=== PATIENT | female | born 1955 | race Two or more races ===

== ENCOUNTER 2016-10-16 07:59 | Outpatient (CLI) | payer BC, OTHER | END 2016-10-16 23:59 | disposition home or self-care (01) | LOC: RAD 07:59 | PROVIDERS: ATTEND Family Medicine | DX: I10 Essential (primary) hypertension (principal); I70.0 Atherosclerosis of aorta; M47.814 Spondylosis without myelopathy or radiculopathy, thoracic region | CPT/HCPCS: 71020-TC ==

== ENCOUNTER 2016-11-08 07:50 | Outpatient (CLI) | payer BC, OTHER ==
[2016-11-08 08:17] LABS: EOSINOPHILS # (AUTO) 0.2 /CMM (0.0-0.7); EOSINOPHILS % (AUTO) 4.2 % (0.0-6.0); HEMATOCRIT 36 % (33-45); HEMOGLOBIN 11.9 g/dL (11.5-14.8); LYMPHOCYTES # (AUTO) 1.1 /CMM (0.8-4.8); MEAN CORPUSCULAR HEMOGLOBIN 30 PG (26.0-33.0); MEAN CORPUSCULAR HGB CONC 33 g/dl (31.0-36.0); MEAN CORPUSCULAR VOLUME 91 fL (82-100); MONOCYTES # (AUTO) 0.3 /CMM (0.1-1.30); MONOCYTES % (AUTO) 9.2 % (2.0-12.0); NEUTROPHILS # (AUTO) 2.1 /CMM (1.8-8.9); NEUTROPHILS % (AUTO) 55.6 % (43.0-81.0); PLATELET COUNT (AUTO) 326 /CMM (150-450); RDW COEFFICIENT OF VARIATION 12.9 (11.5-15.0); RED BLOOD CELL COUNT(AUTO) 3.97 MIL/uL (4.0-5.2); WHITE BLOOD COUNT (AUTO) 3.8 K/uL (4.3-11.0)
[2016-11-08 09:02] LABS: ALBUMIN 3.6 g/dL (3.4-5.0); BILIRUBIN,TOTAL 0.7 mg/dL (0.2-1.0); CALCIUM, SERUM 8.8 mg/dL (8.5-10.1); CREATININE 0.8 mg/dL (0.6-1.3); POTASSIUM 4.4 mmol/L (3.5-5.1); TOTAL PROTEIN, SERUM 7.8 g/dL (6.4-8.2)
[2016-11-08 09:07] LABS: THYROID STIMULATING HORMONE 2.037 uIU/mL (0.358-3.74)
[2016-11-09 12:21] LABS: VIT D, 25-HYDROXY 57.2 ng/mL (30.0-100.0)
[2016-11-09 15:26] LABS: HEPATITIS C VIRUS AB <0.1 s/co ratio (0.0-0.9)
== END 2016-11-08 23:59 | disposition home or self-care (01) ==
LOC: LAB 07:50
PROVIDERS: ATTEND Family Medicine
DX: Z11.59 Encounter for screening for other viral diseases (principal); I10 Essential (primary) hypertension; E55.9 Vitamin D deficiency, unspecified
CPT/HCPCS: 36415; 80053-TC; 80061-TC; 82306; 84439-TC; 84443-TC; 85025-TC; 86803

== ENCOUNTER 2017-01-03 10:02 | Outpatient (CLI) | payer BC, OTHER | END 2017-01-03 23:59 | disposition home or self-care (01) | LOC: RAD 10:02 | PROVIDERS: ATTEND Family Medicine | DX: M17.0 Bilateral primary osteoarthritis of knee (principal) | CPT/HCPCS: 73562 ==

== ENCOUNTER 2017-03-26 07:08 | Outpatient (CLI) | payer BC ==
[2017-03-26 07:27] LABS: BASOPHILS # (AUTO) 0.1 /CMM (0.0-0.2); BASOPHILS % (AUTO) 1.9 % (0.0-2.0); EOSINOPHILS # (AUTO) 0.1 /CMM (0.0-0.7); EOSINOPHILS % (AUTO) 4.3 % (0.0-6.0); HEMATOCRIT 35 % (33-45); HEMOGLOBIN 11.8 g/dL (11.5-14.8); LYMPHOCYTES % (AUTO) 32.3 % (20.0-44.0); MEAN CORPUSCULAR HEMOGLOBIN 31 PG (26.0-33.0); MEAN CORPUSCULAR HGB CONC 33 g/dl (31.0-36.0); MEAN CORPUSCULAR VOLUME 92 fL (82-100); MONOCYTES # (AUTO) 0.3 /CMM (0.1-1.30); MONOCYTES % (AUTO) 9.9 % (2.0-12.0); NEUTROPHILS # (AUTO) 1.7 /CMM (1.8-8.9); NEUTROPHILS % (AUTO) 51.6 % (43.0-81.0); PLATELET COUNT (AUTO) 314 /CMM (150-450); RDW COEFFICIENT OF VARIATION 13.6 (11.5-15.0); RED BLOOD CELL COUNT(AUTO) 3.86 MIL/uL (4.0-5.2); WHITE BLOOD COUNT (AUTO) 3.2 K/uL (4.3-11.0)
[2017-03-26 07:53] LABS: ALBUMIN 3.4 g/dL (3.4-5.0); BILIRUBIN,TOTAL 0.5 mg/dL (0.2-1.0); CALCIUM, SERUM 8.8 mg/dL (8.5-10.1); CREATININE 0.8 mg/dL (0.6-1.3); POTASSIUM 4.1 mmol/L (3.5-5.1); TOTAL PROTEIN, SERUM 7.6 g/dL (6.4-8.2)
[2017-03-26 08:01] LABS: THYROID STIMULATING HORMONE 2.378 uIU/mL (0.358-3.74)
== END 2017-03-26 23:59 | disposition home or self-care (01) ==
LOC: LAB 07:08
PROVIDERS: ATTEND Family Medicine
DX: I10 Essential (primary) hypertension (principal)
CPT/HCPCS: 36415; 80053-TC; 80061-TC; 84439-TC; 84443-TC; 85025-TC

== ENCOUNTER 2017-04-27 08:53 | Outpatient (CLI) | payer BC ==
[2017-04-30 11:09] LABS: *IFE ALBUMIN 3.5 g/dL (2.9-4.4); *IFE ALPHA-2-GLOBULIN 0.8 g/dL (0.4-1.0); *IFE BETA GLOBULIN 1.2 g/dL (0.7-1.3); *IFE GAMMA GLOBULIN 1.4 g/dL (0.4-1.8); *IFE M-SPIKE Not Observed g/dL (Not Observed); *IFEALPHA-1-GLOBULIN 0.2 g/dL (0.0-0.4); *SPE PROTEIN TOTAL 7.2 g/dL (6.0-8.5)
== END 2017-04-27 23:59 | disposition home or self-care (01) ==
LOC: LAB 08:53
PROVIDERS: ATTEND Family Medicine
DX: Z11.59 Encounter for screening for other viral diseases (principal); R73.9 Hyperglycemia, unspecified; D70.9 Neutropenia, unspecified
CPT/HCPCS: 36415; 86709-TC

== ENCOUNTER 2017-05-25 08:32 | Outpatient (CLI) | payer BC ==
[2017-05-25 09:26] LABS: BASOPHILS % (AUTO) 1.2 % (0.0-2.0); EOSINOPHILS # (AUTO) 0.2 /CMM (0.0-0.7); HEMATOCRIT 37 % (33-45); HEMOGLOBIN 12.2 g/dL (11.5-14.8); LYMPHOCYTES # (AUTO) 1.4 /CMM (0.8-4.8); LYMPHOCYTES % (AUTO) 34.1 % (20.0-44.0); MEAN CORPUSCULAR HEMOGLOBIN 31 PG (26.0-33.0); MEAN CORPUSCULAR HGB CONC 33 g/dl (31.0-36.0); MEAN CORPUSCULAR VOLUME 92 fL (82-100); MONOCYTES # (AUTO) 0.5 /CMM (0.1-1.30); MONOCYTES % (AUTO) 11.6 % (2.0-12.0); NEUTROPHILS % (AUTO) 49.1 % (43.0-81.0); PLATELET COUNT (AUTO) 328 /CMM (150-450); RDW COEFFICIENT OF VARIATION 13.6 (11.5-15.0); RED BLOOD CELL COUNT(AUTO) 3.99 MIL/uL (4.0-5.2); WHITE BLOOD COUNT (AUTO) 4.1 K/uL (4.3-11.0)
== END 2017-05-25 23:59 | disposition home or self-care (01) ==
LOC: LAB 08:32
PROVIDERS: ATTEND Family Medicine
DX: D47.2 Monoclonal gammopathy (principal)
CPT/HCPCS: 36415; 85025-TC

== ENCOUNTER 2017-05-31 09:01 | Outpatient (CLI) | payer BC | END 2017-05-31 23:59 | disposition home or self-care (01) | LOC: US 09:01 | PROVIDERS: ATTEND Family Medicine | DX: K86.89 Other specified diseases of pancreas (principal) | CPT/HCPCS: 76700-TC ==

== ENCOUNTER 2017-08-30 08:45 | Outpatient (CLI) | payer BC ==
[2017-08-30 10:12] LABS: BASOPHILS # (AUTO) 0.1 /CMM (0.0-0.2); BASOPHILS % (AUTO) 2.6 % (0.0-2.0); EOSINOPHILS # (AUTO) 0.1 /CMM (0.0-0.7); EOSINOPHILS % (AUTO) 4.2 % (0.0-6.0); HEMATOCRIT 37 % (33-45); HEMOGLOBIN 12.4 g/dL (11.5-14.8); LYMPHOCYTES # (AUTO) 0.7 /CMM (0.8-4.8); LYMPHOCYTES % (AUTO) 20.8 % (20.0-44.0); MEAN CORPUSCULAR HEMOGLOBIN 31 PG (26.0-33.0); MEAN CORPUSCULAR HGB CONC 34 g/dl (31.0-36.0); MEAN CORPUSCULAR VOLUME 92 fL (82-100); MONOCYTES # (AUTO) 0.3 /CMM (0.1-1.30); NEUTROPHILS # (AUTO) 2.3 /CMM (1.8-8.9); NEUTROPHILS % (AUTO) 64.4 % (43.0-81.0); PLATELET COUNT (AUTO) 307 /CMM (150-450); RDW COEFFICIENT OF VARIATION 13.6 (11.5-15.0); WHITE BLOOD COUNT (AUTO) 3.5 K/uL (4.3-11.0)
[2017-08-30 10:30] LABS: ALBUMIN 3.4 g/dL (3.4-5.0); BILIRUBIN,TOTAL 0.7 mg/dL (0.2-1.0); CALCIUM, SERUM 9.2 mg/dL (8.5-10.1); CREATININE 0.7 mg/dL (0.6-1.3); TOTAL PROTEIN, SERUM 8.1 g/dL (6.4-8.2)
[2017-09-02 21:13] LABS: BETA-2 MICROGLOBULIN, SERUM 1.8 mg/L (0.6-2.4)
== END 2017-08-30 23:59 | disposition home or self-care (01) ==
LOC: LAB 08:45
PROVIDERS: ATTEND Internal Medicine Hematology & Oncology
DX: D47.2 Monoclonal gammopathy (principal)
CPT/HCPCS: 36415; 80053-TC; 82232; 85025-TC

== ENCOUNTER 2017-11-23 09:11 | Outpatient (CLI) | payer BC ==
[2017-11-23 10:22] LABS: BASOPHILS % (AUTO) 0.7 % (0.0-2.0); EOSINOPHILS % (AUTO) 1.7 % (0.0-6.0); HEMATOCRIT 36 % (33-45); HEMOGLOBIN 12.1 g/dL (11.5-14.8); LYMPHOCYTES # (AUTO) 0.9 /CMM (0.8-4.8); LYMPHOCYTES % (AUTO) 22.6 % (20.0-44.0); MEAN CORPUSCULAR HGB CONC 34 g/dl (31.0-36.0); MEAN CORPUSCULAR VOLUME 91 fL (82-100); MONOCYTES # (AUTO) 0.4 /CMM (0.1-1.30); NEUTROPHILS # (AUTO) 2.7 /CMM (1.8-8.9); PLATELET COUNT (AUTO) 394 /CMM (150-450); RDW COEFFICIENT OF VARIATION 13.4 (11.5-15.0); RED BLOOD CELL COUNT(AUTO) 3.95 MIL/uL (4.0-5.2); WHITE BLOOD COUNT (AUTO) 4.1 K/uL (4.3-11.0)
[2017-11-23 10:39] LABS: ALBUMIN 3.2 g/dL (3.4-5.0); BILIRUBIN,TOTAL 0.5 mg/dL (0.2-1.0); CALCIUM, SERUM 9.3 mg/dL (8.5-10.1); CREATININE 0.8 mg/dL (0.6-1.3); POTASSIUM 4.4 mmol/L (3.5-5.1); TOTAL PROTEIN, SERUM 7.8 g/dL (6.4-8.2)
[2017-11-23 14:02] LABS: C-REACTIVE PROTEIN 0.5 mg/dL (0.0-0.9); THYROID STIMULATING HORMONE 1.765 uIU/mL (0.358-3.74)
[2017-11-25 20:06] LABS: BETA-2 MICROGLOBULIN, SERUM 2.1 mg/L (0.6-2.4)
[2017-11-26 12:09] LABS: *IFE A/G RATIO 0.8 (0.7-1.7); *IFE BETA GLOBULIN 1.3 g/dL (0.7-1.3); *IFE GAMMA GLOBULIN 1.4 g/dL (0.4-1.8); *IFE M-SPIKE Not Observed g/dL (Not Observed); *IFEALPHA-1-GLOBULIN 0.3 g/dL (0.0-0.4)
== END 2017-11-23 23:59 | disposition home or self-care (01) ==
LOC: LAB 09:11
PROVIDERS: ATTEND Internal Medicine Hematology & Oncology
DX: D72.819 Decreased white blood cell count, unspecified (principal); D47.2 Monoclonal gammopathy
CPT/HCPCS: 36415; 80053-TC; 82232; 82746; 84156; 84166; 84439-TC; 84443-TC; 85025-TC; 86140-TC; 86335; 86431-TC; 86706; 86803; 87340

== ENCOUNTER 2017-12-21 07:12 | Outpatient (CLI) | payer BC ==
[2017-12-21 09:44] LABS: EOSINOPHILS % (AUTO) 2.1 % (0.0-6.0); HEMATOCRIT 35 % (33-45); HEMOGLOBIN 11.7 g/dL (11.5-14.8); LYMPHOCYTES # (AUTO) 0.8 /CMM (0.8-4.8); LYMPHOCYTES % (AUTO) 20.7 % (20.0-44.0); MEAN CORPUSCULAR HEMOGLOBIN 31 PG (26.0-33.0); MEAN CORPUSCULAR HGB CONC 34 g/dl (31.0-36.0); MEAN CORPUSCULAR VOLUME 93 fL (82-100); MONOCYTES # (AUTO) 0.4 /CMM (0.1-1.30); MONOCYTES % (AUTO) 11.2 % (2.0-12.0); NEUTROPHILS # (AUTO) 2.5 /CMM (1.8-8.9); PLATELET COUNT (AUTO) 333 /CMM (150-450); RDW COEFFICIENT OF VARIATION 13.2 (11.5-15.0); RED BLOOD CELL COUNT(AUTO) 3.74 MIL/uL (4.0-5.2); WHITE BLOOD COUNT (AUTO) 3.8 K/uL (4.3-11.0)
[2017-12-21 09:56] LABS: ALBUMIN 3.2 g/dL (3.4-5.0); BILIRUBIN,TOTAL 0.5 mg/dL (0.2-1.0); CALCIUM, SERUM 8.6 mg/dL (8.5-10.1); CREATININE 0.8 mg/dL (0.6-1.3); POTASSIUM 4.2 mmol/L (3.5-5.1); TOTAL PROTEIN, SERUM 7.7 g/dL (6.4-8.2)
== END 2017-12-21 23:59 | disposition home or self-care (01) ==
LOC: LAB 07:12
PROVIDERS: ATTEND Internal Medicine Hematology & Oncology
DX: D47.2 Monoclonal gammopathy (principal); D72.819 Decreased white blood cell count, unspecified
CPT/HCPCS: 36415; 80053-TC; 85025-TC

== ENCOUNTER 2018-02-27 09:01 | Outpatient (CLI) | payer BC ==
[2018-02-27 09:57] LABS: BASOPHILS % (AUTO) 0.8 % (0.0-2.0); EOSINOPHILS % (AUTO) 1.2 % (0.0-6.0); HEMATOCRIT 39 % (33-45); HEMOGLOBIN 12.2 g/dL (11.5-14.8); LYMPHOCYTES # (AUTO) 0.9 /CMM (0.8-4.8); LYMPHOCYTES % (AUTO) 20.8 % (20.0-44.0); MEAN CORPUSCULAR HEMOGLOBIN 29 PG (26.0-33.0); MEAN CORPUSCULAR HGB CONC 31 g/dl (31.0-36.0); MEAN CORPUSCULAR VOLUME 94 fL (82-100); MONOCYTES # (AUTO) 0.4 /CMM (0.1-1.30); MONOCYTES % (AUTO) 9.7 % (2.0-12.0); NEUTROPHILS % (AUTO) 67.5 % (43.0-81.0); PLATELET COUNT (AUTO) 325 /CMM (150-450); RDW COEFFICIENT OF VARIATION 13.9 (11.5-15.0); RED BLOOD CELL COUNT(AUTO) 4.17 MIL/uL (4.0-5.2); WHITE BLOOD COUNT (AUTO) 4.4 K/uL (4.3-11.0)
[2018-02-27 10:34] LABS: ALBUMIN 3.3 g/dL (3.4-5.0); BILIRUBIN,TOTAL 0.6 mg/dL (0.2-1.0); CALCIUM, SERUM 8.9 mg/dL (8.5-10.1); CREATININE 0.8 mg/dL (0.6-1.3); POTASSIUM 4.2 mmol/L (3.5-5.1); TOTAL PROTEIN, SERUM 7.6 g/dL (6.4-8.2)
[2018-02-28 11:10] LABS: *IFE A/G RATIO 1.1 (0.7-1.7); *IFE ALBUMIN 3.5 g/dL (2.9-4.4); *IFE ALPHA-2-GLOBULIN 0.8 g/dL (0.4-1.0); *IFE BETA GLOBULIN 1.2 g/dL (0.7-1.3); *IFE GAMMA GLOBULIN 1.2 g/dL (0.4-1.8); *IFE M-SPIKE Not Observed g/dL (Not Observed); *IFEALPHA-1-GLOBULIN 0.2 g/dL (0.0-0.4)
== END 2018-02-27 23:59 | disposition home or self-care (01) ==
LOC: LAB 09:01
PROVIDERS: ATTEND Internal Medicine Hematology & Oncology
DX: D47.2 Monoclonal gammopathy (principal); D72.819 Decreased white blood cell count, unspecified
CPT/HCPCS: 36415; 80053-TC; 85025-TC

== ENCOUNTER 2018-09-23 08:36 | Outpatient (CLI) | payer BC ==
[2018-09-23 09:43] LABS: BASOPHILS # (AUTO) 0.1 /CMM (0.0-0.2); BASOPHILS % (AUTO) 2.8 % (0.0-2.0); HEMATOCRIT 36 % (33-45); LYMPHOCYTES # (AUTO) 0.8 /CMM (0.8-4.8); LYMPHOCYTES % (AUTO) 20.4 % (20.0-44.0); MEAN CORPUSCULAR HGB CONC 34 g/dl (31.0-36.0); MEAN CORPUSCULAR VOLUME 94 fL (82-100); MONOCYTES # (AUTO) 0.4 /CMM (0.1-1.30); MONOCYTES % (AUTO) 10.4 % (2.0-12.0); NEUTROPHILS # (AUTO) 2.3 /CMM (1.8-8.9); NEUTROPHILS % (AUTO) 62.4 % (43.0-81.0); PLATELET COUNT (AUTO) 388 /CMM (150-450); RED BLOOD CELL COUNT(AUTO) 3.81 MIL/uL (4.0-5.2); WHITE BLOOD COUNT (AUTO) 3.7 K/uL (4.3-11.0)
[2018-09-23 09:52] LABS: ALBUMIN 3.2 g/dL (3.4-5.0); BILIRUBIN,TOTAL 0.5 mg/dL (0.2-1.0); CALCIUM, SERUM 8.8 mg/dL (8.5-10.1); CREATININE 0.8 mg/dL (0.6-1.3); POTASSIUM 4.1 mmol/L (3.5-5.1); TOTAL PROTEIN, SERUM 7.5 g/dL (6.4-8.2)
[2018-09-24 15:09] LABS: *IFE A/G RATIO 1.1 (0.7-1.7); *IFE ALBUMIN 3.4 g/dL (2.9-4.4); *IFE ALPHA-2-GLOBULIN 0.7 g/dL (0.4-1.0); *IFE BETA GLOBULIN 1.2 g/dL (0.7-1.3); *IFE GAMMA GLOBULIN 1.2 g/dL (0.4-1.8); *IFE M-SPIKE Not Observed g/dL (Not Observed); *IFEALPHA-1-GLOBULIN 0.2 g/dL (0.0-0.4)
== END 2018-09-23 23:59 | disposition home or self-care (01) ==
LOC: LAB 08:36
PROVIDERS: ATTEND Internal Medicine Hematology & Oncology
DX: I10 Essential (primary) hypertension (principal); D47.2 Monoclonal gammopathy; D72.819 Decreased white blood cell count, unspecified; E53.8 Deficiency of other specified B group vitamins
CPT/HCPCS: 36415; 80053-TC; 85025-TC

== ENCOUNTER 2019-01-10 10:31 | Outpatient (CLI) | payer BC ==
[2019-01-10 11:29] LABS: BASOPHILS # (AUTO) 0.1 /CMM (0.0-0.2); BASOPHILS % (AUTO) 1.4 % (0.0-2.0); EOSINOPHILS % (AUTO) 0.8 % (0.0-6.0); HEMATOCRIT 37 % (33-45); HEMOGLOBIN 12.4 g/dL (11.5-14.8); LYMPHOCYTES # (AUTO) 0.8 /CMM (0.8-4.8); LYMPHOCYTES % (AUTO) 20.4 % (20.0-44.0); MEAN CORPUSCULAR HGB CONC 34 g/dl (31.0-36.0); MEAN CORPUSCULAR VOLUME 94 fL (82-100); MONOCYTES # (AUTO) 0.3 /CMM (0.1-1.30); MONOCYTES % (AUTO) 8.4 % (2.0-12.0); NEUTROPHILS # (AUTO) 2.7 /CMM (1.8-8.9); PLATELET COUNT (AUTO) 292 /CMM (150-450); RED BLOOD CELL COUNT(AUTO) 3.95 MIL/uL (4.0-5.2); WHITE BLOOD COUNT (AUTO) 3.9 K/uL (4.3-11.0)
[2019-01-10 11:59] LABS: ALBUMIN 3.4 g/dL (3.4-5.0); BILIRUBIN,TOTAL 0.4 mg/dL (0.2-1.0); CALCIUM, SERUM 8.9 mg/dL (8.5-10.1); CREATININE 0.8 mg/dL (0.6-1.3); POTASSIUM 3.9 mmol/L (3.5-5.1); TOTAL PROTEIN, SERUM 7.5 g/dL (6.4-8.2)
[2019-01-10 12:08] LABS: THYROID STIMULATING HORMONE 1.831 uIU/mL (0.358-3.74)
[2019-01-14 06:07] LABS: *IFE ALBUMIN 3.6 g/dL (2.9-4.4); *IFE ALPHA-2-GLOBULIN 0.8 g/dL (0.4-1.0); *IFE BETA GLOBULIN 1.3 g/dL (0.7-1.3); *IFE GAMMA GLOBULIN 1.3 g/dL (0.4-1.8); *IFE M-SPIKE Not Observed g/dL (Not Observed); *IFEALPHA-1-GLOBULIN 0.2 g/dL (0.0-0.4); IMMUNOGLOBULIN A, SERUM 695 mg/dL (87-352); IMMUNOGLOBULIN G, SERUM 1284 mg/dL (700-1600); IMMUNOGLOBULIN M, SERUM 89 mg/dL (26-217)
== END 2019-01-10 23:59 | disposition home or self-care (01) ==
LOC: LAB 10:31
PROVIDERS: ATTEND Internal Medicine Hematology & Oncology
DX: D72.819 Decreased white blood cell count, unspecified (principal); E53.8 Deficiency of other specified B group vitamins; M19.90 Unspecified osteoarthritis, unspecified site
CPT/HCPCS: 36415; 80053-TC; 82784; 84155; 84165; 84439-TC; 84443-TC; 85025-TC; 86334

== ENCOUNTER → 2019-05-21 | Outpatient (CLI) | payer BC ==
[2019-05-21 10:33] LABS: EOSINOPHILS % (AUTO) 2.2 % (0.0-6.0); HEMATOCRIT 39 % (33-45); HEMOGLOBIN 12.9 g/dL (11.5-14.8); LYMPHOCYTES # (AUTO) 0.9 /CMM (0.8-4.8); MEAN CORPUSCULAR HGB CONC 33 g/dl (31.0-36.0); MEAN CORPUSCULAR VOLUME 95 fL (82-100); MONOCYTES # (AUTO) 0.3 /CMM (0.1-1.30); MONOCYTES % (AUTO) 7.6 % (2.0-12.0); NEUTROPHILS # (AUTO) 2.9 /CMM (1.8-8.9); NEUTROPHILS % (AUTO) 68.2 % (43.0-81.0); PLATELET COUNT (AUTO) 266 /CMM (150-450); RED BLOOD CELL COUNT(AUTO) 4.06 MIL/uL (4.0-5.2); WHITE BLOOD COUNT (AUTO) 4.3 K/uL (4.3-11.0)
[2019-05-21 11:02] LABS: THYROID STIMULATING HORMONE 1.771 uIU/mL (0.358-3.74)
[2019-05-23 12:07] LABS: *IFE A/G RATIO 0.9 (0.7-1.7); *IFE ALBUMIN 3.2 g/dL (2.9-4.4); *IFE ALPHA-2-GLOBULIN 0.8 g/dL (0.4-1.0); *IFE BETA GLOBULIN 1.3 g/dL (0.7-1.3); *IFE GAMMA GLOBULIN 1.4 g/dL (0.4-1.8); *IFE M-SPIKE Not Observed g/dL (Not Observed); *IFEALPHA-1-GLOBULIN 0.2 g/dL (0.0-0.4)
== END | disposition home or self-care (01) ==
LOC: LAB 09:46
PROVIDERS: ATTEND Internal Medicine Hematology & Oncology
DX: D47.2 Monoclonal gammopathy (principal)
CPT/HCPCS: 36415; 84439-TC; 84443-TC; 85025-TC

== ENCOUNTER 2019-09-23 10:55 | Outpatient (CLI) | payer BC ==
[2019-09-23 11:55] LABS: BASOPHILS % (AUTO) 0.9 % (0.0-2.0); EOSINOPHILS % (AUTO) 2.5 % (0.0-6.0); HEMATOCRIT 38 % (33-45); HEMOGLOBIN 12.5 g/dL (11.5-14.8); LYMPHOCYTES % (AUTO) 22.8 % (20.0-44.0); MEAN CORPUSCULAR HGB CONC 33 g/dl (31.0-36.0); MEAN CORPUSCULAR VOLUME 95 fL (82-100); MONOCYTES # (AUTO) 0.4 /CMM (0.1-1.30); MONOCYTES % (AUTO) 9.1 % (2.0-12.0); NEUTROPHILS # (AUTO) 2.8 /CMM (1.8-8.9); NEUTROPHILS % (AUTO) 64.7 % (43.0-81.0); PLATELET COUNT (AUTO) 292 /CMM (150-450); RED BLOOD CELL COUNT(AUTO) 3.97 MIL/uL (4.0-5.2); WHITE BLOOD COUNT (AUTO) 4.3 K/uL (4.3-11.0)
[2019-09-23 12:12] LABS: ALBUMIN 3.3 g/dL (3.4-5.0); BILIRUBIN,TOTAL 0.4 mg/dL (0.2-1.0); CALCIUM, SERUM 8.8 mg/dL (8.5-10.1); CREATININE 0.9 mg/dL (0.6-1.3); TOTAL PROTEIN, SERUM 7.7 g/dL (6.4-8.2)
[2019-09-23 12:20] LABS: THYROID STIMULATING HORMONE 2.101 uIU/mL (0.358-3.74)
[2019-09-23 12:38] LABS: POTASSIUM 3.8 mmol/L (3.5-5.1)
[2019-09-24 11:06] LABS: *SPE A/G RATIO 0.9 (0.7-1.7); *SPE ALBUMIN 3.3 g/dL (2.9-4.4); *SPE ALPHA-1-GLOBULIN 0.2 g/dL (0.0-0.4); *SPE ALPHA-2-GLOBULIN 0.8 g/dL (0.4-1.0); *SPE BETA GLOBULIN 1.5 g/dL (0.7-1.3); *SPE GLOBULIN, TOTAL 3.7 g/dL (2.2-3.9); *SPE M-SPIKE Not Observed g/dL (Not Observed); *SPEGAMMA GLOBULIN 1.2 g/dL (0.4-1.8)
== END 2019-09-23 23:59 | disposition home or self-care (01) ==
LOC: LAB 10:55
PROVIDERS: ATTEND Internal Medicine Hematology & Oncology
DX: D47.2 Monoclonal gammopathy (principal); D72.819 Decreased white blood cell count, unspecified; E53.8 Deficiency of other specified B group vitamins
CPT/HCPCS: 36415; 80053-TC; 82728-TC; 83540-TC; 84155; 84165; 84439-TC; 84443-TC; 85025-TC

== ENCOUNTER 2019-10-07 09:49 | Outpatient (CLI) | payer BC | END 2019-10-07 23:59 | disposition home or self-care (01) | LOC: MRI 09:49 | PROVIDERS: ATTEND Family Medicine | DX: S83.242A Other tear of medial meniscus, current injury, left knee, initial encounter (principal); M17.0 Bilateral primary osteoarthritis of knee; M25.462 Effusion, left knee; M25.461 Effusion, right knee; M25.762 Osteophyte, left knee; M25.761 Osteophyte, right knee; M67.462 Ganglion, left knee; M65.88 Other synovitis and tenosynovitis, other site; X58.XXXA Exposure to other specified factors, initial encounter; Y93.89 Activity, other specified; Y92.89 Other specified places as the place of occurrence of the external cause; Y99.8 Other external cause status | CPT/HCPCS: 73721-TC ==

== ENCOUNTER 2020-01-19 14:49 | Outpatient (CLI) | payer BC ==
[2020-01-19 16:08] LABS: EOSINOPHILS % (AUTO) 2.9 % (0.0-6.0); HEMATOCRIT 40 % (33-45); HEMOGLOBIN 13.3 g/dL (11.5-14.8); LYMPHOCYTES # (AUTO) 0.9 /CMM (0.8-4.8); LYMPHOCYTES % (AUTO) 24.9 % (20.0-44.0); MEAN CORPUSCULAR HGB CONC 33 g/dl (31.0-36.0); MEAN CORPUSCULAR VOLUME 95 fL (82-100); MONOCYTES # (AUTO) 0.3 /CMM (0.1-1.30); MONOCYTES % (AUTO) 8.9 % (2.0-12.0); NEUTROPHILS # (AUTO) 2.3 /CMM (1.8-8.9); NEUTROPHILS % (AUTO) 62.3 % (43.0-81.0); PLATELET COUNT (AUTO) 234 /CMM (150-450); RED BLOOD CELL COUNT(AUTO) 4.25 MIL/uL (4.0-5.2); WHITE BLOOD COUNT (AUTO) 3.7 K/uL (4.3-11.0)
[2020-01-19 16:40] LABS: ALBUMIN 3.9 g/dL (3.4-5.0); BILIRUBIN,TOTAL 0.3 mg/dL (0.2-1.0); CALCIUM, SERUM 9.7 mg/dL (8.5-10.1); CREATININE 0.8 mg/dL (0.6-1.3); POTASSIUM 4.4 mmol/L (3.5-5.1); TOTAL PROTEIN, SERUM 8.8 g/dL (6.4-8.2)
[2020-01-19 16:55] LABS: FREE T4 (FREE THYROXINE) 0.97 ng/dL (0.76-1.46); THYROID STIMULATING HORMONE 2.082 uIU/mL (0.358-3.74)
[2020-01-20 08:16] LABS: IMMUNOGLOBULIN A, SERUM 689 mg/dL (87-352); IMMUNOGLOBULIN G, SERUM 1336 mg/dL (586-1602); IMMUNOGLOBULIN M, SERUM 83 mg/dL (26-217)
[2020-01-21 06:07] LABS: *SPE A/G RATIO 0.8 (0.7-1.7); *SPE ALBUMIN 3.3 g/dL (2.9-4.4); *SPE ALPHA-1-GLOBULIN 0.2 g/dL (0.0-0.4); *SPE ALPHA-2-GLOBULIN 0.8 g/dL (0.4-1.0); *SPE BETA GLOBULIN 1.4 g/dL (0.7-1.3); *SPE GLOBULIN, TOTAL 3.9 g/dL (2.2-3.9); *SPE M-SPIKE Not Observed g/dL (Not Observed); *SPEGAMMA GLOBULIN 1.4 g/dL (0.4-1.8)
== END 2020-01-19 23:59 | disposition home or self-care (01) ==
LOC: LAB 14:49
PROVIDERS: ATTEND Internal Medicine Hematology & Oncology
DX: D64.9 Anemia, unspecified (principal)
CPT/HCPCS: 36415; 80053-TC; 82728-TC; 82784; 83540-TC; 84155; 84165; 84439-TC; 84443-TC; 85025-TC; 86334

== ENCOUNTER 2020-02-24 09:42 | Outpatient (CLI) | payer BC ==
[2020-02-24 10:45] LABS: BASOPHILS % (AUTO) 1.1 % (0.0-2.0); EOSINOPHILS % (AUTO) 3.6 % (0.0-6.0); HEMATOCRIT 38 % (33-45); HEMOGLOBIN 12.5 g/dL (11.5-14.8); LYMPHOCYTES # (AUTO) 0.9 /CMM (0.8-4.8); LYMPHOCYTES % (AUTO) 22.2 % (20.0-44.0); MEAN CORPUSCULAR HGB CONC 33 g/dl (31.0-36.0); MEAN CORPUSCULAR VOLUME 95 fL (82-100); MONOCYTES # (AUTO) 0.3 /CMM (0.1-1.30); NEUTROPHILS # (AUTO) 2.7 /CMM (1.8-8.9); NEUTROPHILS % (AUTO) 65.1 % (43.0-81.0); PLATELET COUNT (AUTO) 277 /CMM (150-450); RED BLOOD CELL COUNT(AUTO) 4.03 MIL/uL (4.0-5.2); WHITE BLOOD COUNT (AUTO) 4.2 K/uL (4.3-11.0)
[2020-02-24 10:56] LABS: ALBUMIN 3.2 g/dL (3.4-5.0); BILIRUBIN,TOTAL 0.5 mg/dL (0.2-1.0); CALCIUM, SERUM 8.6 mg/dL (8.5-10.1); CREATININE 0.9 mg/dL (0.6-1.3); POTASSIUM 4.1 mmol/L (3.5-5.1); TOTAL PROTEIN, SERUM 7.4 g/dL (6.4-8.2)
[2020-02-24 11:05] LABS: THYROID STIMULATING HORMONE 1.987 uIU/mL (0.358-3.74)
[2020-02-25 06:07] LABS: T3, FREE 2.8 pg/mL (2.0-4.4)
== END 2020-02-24 23:59 | disposition home or self-care (01) ==
LOC: LAB 09:42
PROVIDERS: ATTEND Family Medicine
DX: S83.512A Sprain of anterior cruciate ligament of left knee, initial encounter (principal); D70.9 Neutropenia, unspecified; I65.23 Occlusion and stenosis of bilateral carotid arteries; R89.4 Abnormal immunological findings in specimens from other organs, systems and tissues; X58.XXXA Exposure to other specified factors, initial encounter; Y93.89 Activity, other specified; Y92.89 Other specified places as the place of occurrence of the external cause; Y99.8 Other external cause status
CPT/HCPCS: 36415; 80053-TC; 82306; 84439-TC; 84443-TC; 84481; 85025-TC

== ENCOUNTER 2020-03-16 10:49 | Outpatient (CLI) | payer BC ==
[2020-03-16 13:05] LABS: CHOLESTEROL 178 mg/dL (<200); HDL CHOLESTEROL 55 mg/dL (40-60); LDL 107 mg/dL (0-99); TRIGLYCERIDES 159 mg/dL (30-150)
== END 2020-03-16 23:59 | disposition home or self-care (01) ==
LOC: LAB 10:49
PROVIDERS: ATTEND Family Medicine
DX: E78.2 Mixed hyperlipidemia (principal)
CPT/HCPCS: 36415; 80061-TC

== ENCOUNTER 2020-05-11 08:37 | Outpatient (CLI) | payer BC ==
[2020-05-11 09:24] LABS: ALBUMIN 3.4 g/dL (3.4-5.0); BILIRUBIN,TOTAL 0.6 mg/dL (0.2-1.0); CALCIUM, SERUM 8.9 mg/dL (8.5-10.1); CREATININE 0.9 mg/dL (0.6-1.3); POTASSIUM 4.3 mmol/L (3.5-5.1); TOTAL PROTEIN, SERUM 7.7 g/dL (6.4-8.2)
== END 2020-05-11 23:59 | disposition home or self-care (01) ==
LOC: LAB 08:37
PROVIDERS: ATTEND Family Medicine
DX: I10 Essential (primary) hypertension (principal)
CPT/HCPCS: 36415; 80053-TC

== ENCOUNTER 2020-05-18 14:54 | Outpatient (CLI) | payer BC ==
[2020-05-18 15:36] LABS: BASOPHILS # (AUTO) 0.1 /CMM (0.0-0.2); BASOPHILS % (AUTO) 1.3 % (0.0-2.0); EOSINOPHILS % (AUTO) 3.1 % (0.0-6.0); HEMATOCRIT 35 % (33-45); HEMOGLOBIN 11.6 g/dL (11.5-14.8); LYMPHOCYTES % (AUTO) 25.1 % (20.0-44.0); MEAN CORPUSCULAR HGB CONC 33 g/dl (31.0-36.0); MEAN CORPUSCULAR VOLUME 95 fL (82-100); MONOCYTES # (AUTO) 0.4 /CMM (0.1-1.30); MONOCYTES % (AUTO) 9.5 % (2.0-12.0); NEUTROPHILS # (AUTO) 2.4 /CMM (1.8-8.9); PLATELET COUNT (AUTO) 278 /CMM (150-450); RED BLOOD CELL COUNT(AUTO) 3.68 MIL/uL (4.0-5.2); WHITE BLOOD COUNT (AUTO) 3.9 K/uL (4.3-11.0)
[2020-05-18 15:58] LABS: ALBUMIN 3.2 g/dL (3.4-5.0); BILIRUBIN,TOTAL 0.3 mg/dL (0.2-1.0); CALCIUM, SERUM 8.6 mg/dL (8.5-10.1); CREATININE 0.9 mg/dL (0.6-1.3); POTASSIUM 4.2 mmol/L (3.5-5.1); TOTAL PROTEIN, SERUM 7.4 g/dL (6.4-8.2)
[2020-05-18 16:18] LABS: THYROID STIMULATING HORMONE 1.647 uIU/mL (0.358-3.74)
== END 2020-05-18 23:59 | disposition home or self-care (01) ==
LOC: LAB 14:54
PROVIDERS: ATTEND Internal Medicine Hematology & Oncology
DX: D47.2 Monoclonal gammopathy (principal); E53.8 Deficiency of other specified B group vitamins
CPT/HCPCS: 80053-TC; 82728-TC; 83540-TC; 84439-TC; 84443-TC; 85025-TC

== ENCOUNTER 2020-05-31 11:25 | Outpatient (CLI) | payer BC ==
[2020-05-31 14:36] LABS: BILIRUBIN,URINE NEGATIVE (NEGATIVE); BLOOD, URINE TRACE Ery/uL (NEGATIVE); COLOR,URINE YELLOW (YELLOW); LEUKOCYTE ESTERASE ,URINE TRACE (NEGATIVE); NITRITE, URINE NEGATIVE (NEGATIVE); PROTEIN,URINE NEGATIVE (NEGATIVE); UGLUCOSE NEGATIVE (NEGATIVE); UROBILINOGEN,URINE 0.2 EU/dL (0.2)
[2020-05-31 14:50] LABS: BACTERIA,URINE 3+ /HPF (None Seen)
[2020-05-31 22:30] LABS: OCCULT BLOOD STOOL NEGATIVE (NEGATIVE)
== END 2020-05-31 23:59 | disposition home or self-care (01) ==
LOC: LAB 11:25
PROVIDERS: ATTEND Internal Medicine Hematology & Oncology
DX: E61.1 Iron deficiency (principal); D72.819 Decreased white blood cell count, unspecified
CPT/HCPCS: 81001; 82272-TC; 87086-TC

== ENCOUNTER 2020-06-28 09:42 | Outpatient (CLI) | payer BC ==
[2020-06-28 10:37] LABS: BASOPHILS # (AUTO) 0.1 /CMM (0.0-0.2); EOSINOPHILS % (AUTO) 1.4 % (0.0-6.0); HEMATOCRIT 37 % (33-45); LYMPHOCYTES % (AUTO) 17.2 % (20.0-44.0); MEAN CORPUSCULAR HGB CONC 33 g/dl (31.0-36.0); MEAN CORPUSCULAR VOLUME 95 fL (82-100); MONOCYTES # (AUTO) 0.5 /CMM (0.1-1.30); MONOCYTES % (AUTO) 8.4 % (2.0-12.0); PLATELET COUNT (AUTO) 424 /CMM (150-450); RED BLOOD CELL COUNT(AUTO) 3.83 MIL/uL (4.0-5.2); WHITE BLOOD COUNT (AUTO) 5.6 K/uL (4.3-11.0)
[2020-06-28 10:48] LABS: ALBUMIN 3.2 g/dL (3.4-5.0); BILIRUBIN,TOTAL 0.4 mg/dL (0.2-1.0); CALCIUM, SERUM 9.2 mg/dL (8.5-10.1); CREATININE 0.9 mg/dL (0.6-1.3); POTASSIUM 4.2 mmol/L (3.5-5.1); TOTAL PROTEIN, SERUM 7.8 g/dL (6.4-8.2)
== END 2020-06-28 23:59 | disposition home or self-care (01) ==
LOC: LAB 09:42
PROVIDERS: ATTEND Internal Medicine Hematology & Oncology
DX: D47.2 Monoclonal gammopathy (principal); E53.8 Deficiency of other specified B group vitamins; D72.819 Decreased white blood cell count, unspecified
CPT/HCPCS: 36415; 80053-TC; 82728-TC; 83540-TC; 85025-TC

== ENCOUNTER 2020-08-18 09:11 | Outpatient (CLI) | payer BC ==
[2020-08-18 09:50] LABS: EOSINOPHILS % (AUTO) 2.4 % (0.0-6.0); HEMATOCRIT 38 % (33-45); HEMOGLOBIN 12.4 g/dL (11.5-14.8); LYMPHOCYTES # (AUTO) 0.8 /CMM (0.8-4.8); MEAN CORPUSCULAR HGB CONC 33 g/dl (31.0-36.0); MEAN CORPUSCULAR VOLUME 95 fL (82-100); MONOCYTES # (AUTO) 0.4 /CMM (0.1-1.30); MONOCYTES % (AUTO) 10.3 % (2.0-12.0); NEUTROPHILS # (AUTO) 2.3 /CMM (1.8-8.9); NEUTROPHILS % (AUTO) 64.3 % (43.0-81.0); PLATELET COUNT (AUTO) 274 /CMM (150-450); RED BLOOD CELL COUNT(AUTO) 3.97 MIL/uL (4.0-5.2); WHITE BLOOD COUNT (AUTO) 3.6 K/uL (4.3-11.0)
[2020-08-18 10:13] LABS: ALBUMIN 3.3 g/dL (3.4-5.0); BILIRUBIN,TOTAL 0.3 mg/dL (0.2-1.0); CALCIUM, SERUM 8.9 mg/dL (8.5-10.1); CREATININE 0.8 mg/dL (0.6-1.3); POTASSIUM 4.2 mmol/L (3.5-5.1); TOTAL PROTEIN, SERUM 7.5 g/dL (6.4-8.2)
== END 2020-08-18 23:59 | disposition home or self-care (01) ==
LOC: LAB 09:11
PROVIDERS: ATTEND Internal Medicine Hematology & Oncology
DX: E53.8 Deficiency of other specified B group vitamins (principal); D72.819 Decreased white blood cell count, unspecified; D47.2 Monoclonal gammopathy
CPT/HCPCS: 36415; 80053-TC; 82728-TC; 83540-TC; 85025-TC

== ENCOUNTER 2020-11-16 09:03 | Outpatient (CLI) | payer BC ==
[2020-11-16 10:04] LABS: BASOPHILS % (AUTO) 0.8 % (0.0-2.0); EOSINOPHILS % (AUTO) 4.8 % (0.0-6.0); HEMATOCRIT 37 % (33-45); LYMPHOCYTES % (AUTO) 25.8 % (20.0-44.0); MEAN CORPUSCULAR HGB CONC 33 g/dl (31.0-36.0); MEAN CORPUSCULAR VOLUME 96 fL (82-100); MONOCYTES # (AUTO) 0.4 /CMM (0.1-1.30); MONOCYTES % (AUTO) 10.6 % (2.0-12.0); NEUTROPHILS # (AUTO) 2.2 /CMM (1.8-8.9); PLATELET COUNT (AUTO) 280 /CMM (150-450); RED BLOOD CELL COUNT(AUTO) 3.79 MIL/uL (4.0-5.2); WHITE BLOOD COUNT (AUTO) 3.7 K/uL (4.3-11.0)
[2020-11-16 11:17] LABS: ALBUMIN 3.3 g/dL (3.4-5.0); BILIRUBIN,TOTAL 0.8 mg/dL (0.2-1.0); CALCIUM, SERUM 8.8 mg/dL (8.5-10.1); CREATININE 0.7 mg/dL (0.6-1.3); POTASSIUM 4.3 mmol/L (3.5-5.1); TOTAL PROTEIN, SERUM 7.4 g/dL (6.4-8.2)
[2020-11-17 13:07] LABS: *IFE ALBUMIN 3.4 g/dL (2.9-4.4); *IFE ALPHA-2-GLOBULIN 0.8 g/dL (0.4-1.0); *IFE BETA GLOBULIN 1.4 g/dL (0.7-1.3); *IFE GAMMA GLOBULIN 1.2 g/dL (0.4-1.8); *IFE M-SPIKE Not Observed g/dL (Not Observed); *IFEALPHA-1-GLOBULIN 0.2 g/dL (0.0-0.4); IMMUNOGLOBULIN A, SERUM 640 mg/dL (87-352); IMMUNOGLOBULIN G, SERUM 1224 mg/dL (586-1602); IMMUNOGLOBULIN M, SERUM 74 mg/dL (26-217)
== END 2020-11-16 23:59 | disposition home or self-care (01) ==
LOC: LAB 09:03
PROVIDERS: ATTEND Internal Medicine Hematology & Oncology
DX: D72.819 Decreased white blood cell count, unspecified (principal); D47.2 Monoclonal gammopathy; E53.8 Deficiency of other specified B group vitamins; M19.90 Unspecified osteoarthritis, unspecified site
CPT/HCPCS: 36415; 80053-TC; 82232; 82607-TC; 82728-TC; 82784; 83540-TC; 84155; 84165; 85025-TC; 86334

== ENCOUNTER 2020-12-07 10:03 | Outpatient (CLI) | payer BC ==
[2020-12-08 08:35] LABS: BASOPHILS # (AUTO) 0.1 /CMM (0.0-0.2); BASOPHILS % (AUTO) 1.7 % (0.0-2.0); HEMATOCRIT 36 % (33-45); LYMPHOCYTES # (AUTO) 0.9 /CMM (0.8-4.8); LYMPHOCYTES % (AUTO) 27.3 % (20.0-44.0); MEAN CORPUSCULAR HGB CONC 34 g/dl (31.0-36.0); MEAN CORPUSCULAR VOLUME 96 fL (82-100); MONOCYTES # (AUTO) 0.4 /CMM (0.1-1.30); MONOCYTES % (AUTO) 12.7 % (2.0-12.0); NEUTROPHILS # (AUTO) 1.8 /CMM (1.8-8.9); NEUTROPHILS % (AUTO) 53.3 % (43.0-81.0); PLATELET COUNT (AUTO) 260 /CMM (150-450); RED BLOOD CELL COUNT(AUTO) 3.72 MIL/uL (4.0-5.2); WHITE BLOOD COUNT (AUTO) 3.4 K/uL (4.3-11.0)
[2020-12-08 08:42] LABS: BILIRUBIN,URINE NEGATIVE (NEGATIVE); COLOR,URINE YELLOW (YELLOW); LEUKOCYTE ESTERASE ,URINE MODERATE (NEGATIVE); NITRITE, URINE NEGATIVE (NEGATIVE); PROTEIN,URINE NEGATIVE (NEGATIVE); UGLUCOSE NEGATIVE (NEGATIVE); UROBILINOGEN,URINE 0.2 EU/dL (0.2)
[2020-12-08 08:53] LABS: RBC,URINE 0-2 /HPF (0-2)
[2020-12-08 08:54] LABS: WBC,URINE 21-50 /HPF (0-3)
[2020-12-08 08:55] LABS: BACTERIA,URINE None seen /HPF (None Seen)
[2020-12-08 09:03] LABS: ALBUMIN 3.3 g/dL (3.4-5.0); BILIRUBIN,TOTAL 0.8 mg/dL (0.2-1.0); CALCIUM, SERUM 8.7 mg/dL (8.5-10.1); CREATININE 0.8 mg/dL (0.6-1.3); POTASSIUM 4.4 mmol/L (3.5-5.1); TOTAL PROTEIN, SERUM 7.4 g/dL (6.4-8.2)
== END 2020-12-07 23:59 | disposition home or self-care (01) ==
LOC: LAB 10:03
PROVIDERS: ATTEND Legal Medicine
DX: Z01.818 Encounter for other preprocedural examination (principal); I70.0 Atherosclerosis of aorta
CPT/HCPCS: 71046

== ENCOUNTER → 2020-12-08 | Outpatient (CLI) | payer BC ==
[~2020-12-08] MED LIST: CELE-85 PO; LOSA50TA39 PO; METO-357 PO
== END | disposition home or self-care (01) ==
LOC: LAB 10:00
PROVIDERS: ATTEND Legal Medicine
DX: Z01.818 Encounter for other preprocedural examination (principal)
CPT/HCPCS: 36415; 80053-TC; 81001; 85025-TC; 85730-TC; 87086-TC

== ENCOUNTER 2020-12-17 06:51 | Outpatient (CLI) | payer BC | END 2020-12-17 23:59 | disposition home or self-care (01) | LOC: LAB 06:51 | PROVIDERS: ATTEND Specialist | DX: Z01.812 Encounter for preprocedural laboratory examination (principal); Z20.822 Contact with and (suspected) exposure to COVID-19 | CPT/HCPCS: C9803; U0003 ==

== ENCOUNTER 2020-12-22 05:57 | Inpatient (IN) | payer BC ==
[~2020-12-22] VITALS: Ht 160 cm; Wt 70.8 kg
[2020-12-22] MEDS ORDERED: BUPIVACAINE 0.5 % PF 150 MG/30 ML VIAL ONE (06:20)
[2020-12-22] MEDS ORDERED: ANESTHESIA TRAY IN PYXIS 1 EA TRAY MC ONE (06:20)
[2020-12-22] MEDS ORDERED: HYDROMORPHONE INJ 2 MG/ML DISP.SYRIN ONE ×2 (07:24→08:15)
[2020-12-22] MEDS ORDERED: TRANEXAMIC ACID 3,000 MG in SODIUM CHLORIDE IRRIG SOLUTION 70 ML IR ONE (08:00)
--- NOTE | 2020-12-22 10:30 | NUR ---
MS GEAR GRINDER NOTE PATIENT ADMITTED FROM OR VIA [facility] ACCOMPANIED BY 2 OR NURSES. PATIENT ALERT AND ORIENTED X4 WITH NO SIGN OF DISTRESS. PATINET WITH UNLABORED AND EVEN BREATHING. COMFORT MEASURES PROVIDED. PATIENT WITH IV ACCESS ON RIGHT HAND G20 , PATENT AND INTACT. PATIENT WITH CNO COMPLAINT OF PAIN. WAS ENDORESED THAT PATIENT HAD NERVE BLOCK ON TOP OF GENERAL ANESTHESIA. PATIENT WITH RIGHT LEG COVERED WITH ELASTIC BANDAGE EXTENDING TO THE FOOT. PATIEN DOES NOT COMPLAIN OF PAIN. WILL CONTINUE TO MONITOR PATIENT.
[2020-12-22] MEDS ORDERED: CELE-85 PO (10:42)
[2020-12-22] MEDS ORDERED: LOSA50TA39 PO (10:42)
[2020-12-22] MEDS ORDERED: METO-357 PO (11:01)
[2020-12-22] MEDS ORDERED: ZOLPIDEM TARTRATE 5 MG TABLET PO PRN (12:00)
[2020-12-22] MEDS ORDERED: HYDROCODONE/APAP 5/325MG TABLET PO PRN (12:00)
[2020-12-22] MEDS ORDERED: ACETAMINOPHEN 325 MG TABLET PO PRN (12:00)
[2020-12-22] MEDS ORDERED: ONDANSETRON HCL/PF 4 MG/2 ML VIAL IVP PRN (12:00)
[2020-12-22] MEDS ORDERED: IV LR 1000 ML 1,000 ML IV PRN (12:00)
[2020-12-22] MEDS ORDERED: BISACODYL SUPP (10 MG) 10 MG/SUPP.RECT SUPP.RECT RC PRN (12:00)
[2020-12-22] MEDS: ANCEF 1 GM/50 ML D5W IV SCH ×2 (16:48→23:33)
[2020-12-22] MEDS: METOPROLOL SUCCINATE 50 MG TAB.SR.24H PO SCH (17:27)
[2020-12-22] MEDS: LOSARTAN POTASSIUM 50 MG TABLET PO SCH (17:27)
[2020-12-22] MEDS: HYDROCODONE/APAP 5/325MG TABLET PO PRN ×2 (17:31→23:33)
--- NOTE | 2020-12-22 18:55 | NUR ---
MS RN CLOSING NOTE PATIENT ALERT AND ORIENTED X4 WITH NO SIGN OF DISTRESS. PATIENT WITH UNLABORED AND EVEN BREATHING. COMFORT MEASURES PROVIDED. PATIENT WITH IV ACCESS ON RIGHT HAND G20 , PATENT AND INTACT. PATIENT WITH NO COMPLAINT OF PAIN. PATIENT WAS SEEN BY PT. PATIENT WITH RIGHT LEG COVERED WITH ELASTIC BANDAGE EXTENDING TO THE FOOT, UNABLE TO CHECK WOUND. PATIENT DOES NOT COMPLAIN OF PAIN. PATIENT ENDORSED FOR CONTINUITY OF CARE.
--- NOTE | 2020-12-22 19:45 | NUR ---
RN NOTES Patient transferred to [facility]1, stable condition, denies pain, no SOB. report given to Luisa for continuity of care
[2020-12-22 20:00] VITALS: BP_SYST 123; BP_SYST 129; BP_DIAS 61; BP_DIAS 72
--- NOTE | 2020-12-22 20:00 | NUR ---
RECEIVED PATIENT FROM , REPORT GIVEN BY UZMA FARLEY. PATIENT IS ALERT AND ORIENTED X4. ABLE TO MAKE NEEDS KNOWN. ON ROOM AIR, O2 SAT 100%. DENIES ANY PAIN. S/P LEFT KNEE ARTHROPLASTY, NO DRESSING DRY AND INTACT. IV ACCESS ON LEFT HAND #20, PATENT AND INTACT. BED LOCKED AND IN LOWEST POSITION. SAFETY MEASURES MAINTAINED. CALL LIGHT WITHIN REACH. ALL NEEDS ANTICIPATED.
[2020-12-23 04:00] VITALS: BP 122/62
[2020-12-23 06:15] LABS: HEMOGLOBIN 11.5 g/dL (11.5-14.8)
--- NOTE | 2020-12-23 07:02 | NUR ---
RN NOTE PATIENT ALERT AND ORIENTED X4. RESPIRATIONS EVEN AND UNLABORED. ON ROOM AIR, O2 SAT 99%. NO SIGNIFICANT CHANGES DURING THIS SHIFT. ALL NEEDS ATTENDED PROMPTLY. BED LOCKED AND IN LOWEST POSITION. CALL LIGHT WITHIN REACH. WILL ENDORSE TO AM SHIFT.
[2020-12-23] MEDS: HYDROCODONE/APAP 5/325MG TABLET PO PRN ×3 (07:18→20:05)
--- NOTE | 2020-12-23 07:58 | NUR ---
MS RN NOTE PATIENT ALERT AND ORIENTED X4. RESPIRATIONS EVEN AND UNLABORED. ON ROOM AIR, NO SOB NOTED N. ALL NEEDS ATTENDED PROMPTLY. BED LOCKED AND IN LOWEST POSITION. CALL LIGHT WITHIN REACH. LT KNEE INCISION WITH DRESSING , ICE PACK APPLIED TOLERATED LT HAND HL INTACT AND FLUSHED WELL , ABLE TO EAT BREAKFAST WELL ,NOT IN DISTRESS ,WILL MONITOR
[2020-12-23] MEDS: ASPIRIN 325 MG TABLET PO SCH (08:04)
[2020-12-23] MEDS: LOSARTAN POTASSIUM 50 MG TABLET PO SCH (08:07)
[2020-12-23 08:52] VITALS: BP 90/56
--- NOTE | 2020-12-23 08:57 | NUR ---
[employer] MECHANIC NOTE CPM MACHINE PLACED ON LT KNEE TOLERATED
--- NOTE | 2020-12-23 09:29 | NUR ---
MS RN NOTE SEEN BY PT ABLE TO SIT ON CHAIR
--- NOTE | 2020-12-23 09:30 | NUR ---
ms rn note feels dizzy ,back to by rt cpm machine, placed on lt leg ,will f\u
--- NOTE | 2020-12-23 11:58 | NUR ---
ms rn note cont ob cpm machine bp rechecked 111\67, all needs attended call light within reach
[2020-12-23 12:00] VITALS: BP 111/78
--- NOTE | 2020-12-23 12:19 | NUR ---
MS RN NOTE DR TAMEZ AT BEDSIDE NOTIFIED THAT EARLIER FEELS DIZZY BUT NOW OK , STATED CONT CARE ,POSSIBLE DISCHARGE TOMORROW , WILL CONT TO MONITOR Addendum: 12/23/20 at 1350 by ERASTO GRAMAJO RN OFF FOR CPM MACHINE , NORCO PO GIVEN BP 104/78 SATURATION 98%,WILL MONITOR
--- NOTE | 2020-12-23 15:40 | NUR ---
MS RN NOTE FAMILY AT BEDSIDE, ALL NEEDS ATTENDED
[2020-12-23 16:00] VITALS: BP 91/56
[2020-12-23] MEDS: METOPROLOL SUCCINATE 50 MG TAB.SR.24H PO SCH (16:43)
--- NOTE | 2020-12-23 16:43 | NUR ---
MS RN NOTE PER DR GRAY SPARROW TO D\C IVF PATIENT TAKE FLUIDS WELL
--- NOTE | 2020-12-23 18:15 | NUR ---
MS RN NOTE PATIENT IN BED , RESTING COMFORTABLY, ON RA NO SOB NOTED AT THIS TASHA STILL WITH DRESING ON LT KNEE INTACT KNEE LT HAND HL INTACT KEEP CLEAN DRY , SAFETY MEASURE PROVIDED, CALL LIGHT WITHIN REACH , WILL CONT TO MONITOR
--- NOTE | 2020-12-23 19:19 | NUR ---
RN NOTE PATIENT IN BED RESTING ALERT AND ORIENTED X 4, ABLE TO MAKE NEEDS KNOWN. ON ROOM AIR, NO SIGNS OF ANY RESPIRATORY DISTRESS. WITH LEFT KNEE INCISION FROM S/P LEFT KNEE ARTHROPLASTY, DRESSING DRY AND INTACT. COMPLAINS OF MODERATE PAIN OF LEFT KNEE, WILL ADMINISTER DUE PRN PAIN MEDS. IV ACCESS ON LEFT HAND #20 PATENT AND INTACT. BED LOCKED AND IN LOWEST POSITION. CALL LIGHT WITHIN REACH. SAFETY MEASURES MAINTAINED. ALL NEEDS ANTICIPATED.
[2020-12-23 20:00] VITALS: BP 112/58
[2020-12-23] MEDS: SENNOSIDES 8.6 MG TABLET PO PRN (20:04)
[2020-12-23] MEDS: HYDROMORPHONE 1 MG/1 ML DISP.SYRIN IV PRN (22:30)
[2020-12-24] MEDS: HYDROCODONE/APAP 5/325MG TABLET PO PRN ×4 (03:06→22:32)
[2020-12-24 04:00] VITALS: BP 123/65
[2020-12-24] MEDS: HYDROMORPHONE 1 MG/1 ML DISP.SYRIN IV PRN (06:32)
--- NOTE | 2020-12-24 06:51 | NUR ---
RN NOTE PATIENT ALERT AND ORIENTED X 4. ON ROOM AIR, NO SIGNS OF ANY RESPIRATORY DISTRESS. WITH LEFT KNEE INCISION FROM S/P LEFT KNEE ARTHROPLASTY, DRESSING DRY AND INTACT. PAIN RELIEVED BY NON PHARMACOLOGICAL INTERVENTIONS AND PRN PAIN MEDS. IV ACCESS ON LEFT HAND #20 PATENT AND INTACT. ALL NEEDS ATTENDED PROMPTLY. BED LOCKED AND IN LOWEST POSITION. CALL LIGHT WITHIN REACH. SAFETY MEASURES MAINTAINED. WILL ENDORSE TO AM SHIFT.
[2020-12-24 07:06] LABS: BASOPHILS % (AUTO) 0.2 % (0.0-2.0); EOSINOPHILS % (AUTO) 0.4 % (0.0-6.0); HEMATOCRIT 31 % (33-45); HEMOGLOBIN 10.5 g/dL (11.5-14.8); LYMPHOCYTES # (AUTO) 0.8 K/uL (0.8-4.8); LYMPHOCYTES % (AUTO) 12.2 % (20.0-44.0); MEAN CORPUSCULAR HGB CONC 34 g/dl (31.0-36.0); MEAN CORPUSCULAR VOLUME 95 fL (82-100); MONOCYTES # (AUTO) 0.6 K/uL (0.1-1.30); MONOCYTES % (AUTO) 9.3 % (2.0-12.0); NEUTROPHILS # (AUTO) 5.3 K/uL (1.8-8.9); NEUTROPHILS % (AUTO) 77.9 % (43.0-81.0); PLATELET COUNT (AUTO) 238 K/uL (150-450); RED BLOOD CELL COUNT(AUTO) 3.24 MIL/uL (4.0-5.2); WHITE BLOOD COUNT (AUTO) 6.9 K/uL (4.3-11.0)
--- NOTE | 2020-12-24 07:15 | NUR ---
RN NOTE PATIENT OBSERVED IN BED, AWAKE, ALERT AND ORIENTED X4, ABLE TO VERBALIZE NEEDS, BREATHING EVEN AND UNLABORED, AFEBRILE T THIS TIME. S/P LEFT KNEE ARTHROPLASTY, NO PAIN COMPLAINS AT THIS TIME, CALL LIGHT WITHIN REACH, SAFETY MEASURES OBSERVED, BED WHEELS LOCK, WILL CONTINUE TO MONITOR.
[2020-12-24 07:27] LABS: CALCIUM, SERUM 7.9 mg/dL (8.5-10.1); CREATININE 0.7 mg/dL (0.6-1.3); POTASSIUM 4.2 mmol/L (3.5-5.1)
--- NOTE | 2020-12-24 08:17 | NUR ---
RN NOTE PATIENT COMPLAIN OF DIZZINESS BP 0F 110/60, NAUSEA AND 1 EPISODE OF VOMITING GAVE ZOFRAN ORDERED, WILL CONTINUE TO MONITOR RESIDENT
[2020-12-24] MEDS: ASPIRIN 325 MG TABLET PO SCH (08:46)
[2020-12-24] MEDS: LOSARTAN POTASSIUM 50 MG TABLET PO SCH (08:47)
--- NOTE | 2020-12-24 11:45 | NUR ---
RN NOTE LEFT KNEE TREATMENT DONE ORDERED PRIOR TO DISCHARGE, NO S/S OF INFECTION NOTED WILL CONTINUE TO MONITOR.
[2020-12-24 12:00] VITALS: BP 115/64
--- NOTE | 2020-12-24 12:26 | NUR ---
RN NOTE INFORMED DR. TAMEZ REGARDING PATIENT REQUEST AND CURRENT CONDITION, PER MD ORDER TO HOLD OFF DISCHARGE UNTIL SUNDAY. WILL NOTIFY LIVESTOCK AGENT.
[2020-12-24] MEDS ORDERED: IV NS 0.9% 1,000 ML IV SCH (14:30)
[2020-12-24] MEDS: DOCUSATE SODIUM 250 MG CAPSULE PO PRN (15:26)
[2020-12-24] MEDS: IV NS 0.9% 1,000 ML IV PRN (15:29)
[2020-12-24] MEDS: METOPROLOL SUCCINATE 50 MG TAB.SR.24H PO SCH (16:47)
--- NOTE | 2020-12-24 18:50 | NUR ---
RN NOTE PATIENT ALERT AND ORIENTED X4 ABLE TO VERBALIZE NEEDS, EVEN AND UNLABORED RESPIRATION, COMPLAINS OF PAIN THROUGHOUT THE SHIFT, PAIN MEDICATION GIVEN ORDERED, EFFECTIVE PAIN MANAGEMENT UPON ASSESSMENT, AMBULATE WITH REHAB, ON CPM TOLERATED, FOR POSSIBLE DISCHARGE ON SUNDAY, BED WHEELS LOCK, CALL LIGHT WITHIN REACH, SAFETY MEASURES OBSERVED
--- NOTE | 2020-12-24 19:30 | NUR ---
RN NOTE RECEIVED PT IN BED, ALERT AND ORIENTED X4. NO SIGNS OF DISTRESS NOTED, TOLERATING ROOM AIR. DENIES ANY PAIN AT THIS TIME. DRESSING ON LEFT KNEE CLEAN DRY AND INTACT. PT ON IVF NS AT 80 ML/HR. IV PATENT AND INTACT. WILL CONTINUE TO MONITOR. ALL SAFETY MEASURES IN PLACE PER PROTOCOL, CALL LIGHT WITHIN REACH, BED LOCKED IN LOWEST POSITION, SIDE RAILS UP.
[2020-12-24 20:00] VITALS: BP 105/69
[2020-12-25 04:00] VITALS: BP 140/82
[2020-12-25 06:53] LABS: BASOPHILS % (AUTO) 0.6 % (0.0-2.0); EOSINOPHILS % (AUTO) 1.3 % (0.0-6.0); HEMATOCRIT 32 % (33-45); HEMOGLOBIN 10.8 g/dL (11.5-14.8); LYMPHOCYTES # (AUTO) 1.2 K/uL (0.8-4.8); LYMPHOCYTES % (AUTO) 18.9 % (20.0-44.0); MEAN CORPUSCULAR HGB CONC 34 g/dl (31.0-36.0); MEAN CORPUSCULAR VOLUME 95 fL (82-100); MONOCYTES # (AUTO) 0.7 K/uL (0.1-1.30); MONOCYTES % (AUTO) 11.4 % (2.0-12.0); NEUTROPHILS # (AUTO) 4.2 K/uL (1.8-8.9); NEUTROPHILS % (AUTO) 67.8 % (43.0-81.0); PLATELET COUNT (AUTO) 253 K/uL (150-450); RED BLOOD CELL COUNT(AUTO) 3.34 MIL/uL (4.0-5.2); WHITE BLOOD COUNT (AUTO) 6.1 K/uL (4.3-11.0)
[2020-12-25] MEDS: IV NS 0.9% 1,000 ML IV PRN ×2 (06:56→22:01)
--- NOTE | 2020-12-25 07:00 | NUR ---
RN CLOSING NOTES PT REMAIN IN BED, TOLERATING ROOM AIR. ABLE TO MAKE NEEDS KNOWN. DENIES PAIN AT THIS TIME. ALL NEEDS ATTENDED. CONTINUE ON IVF NS AT 80 ML/HR. NO SIGNS OF INFILTRATION NOTED. WILL ENDORSE TO NEXT SHIFT NURSE FOR LOLA.
--- NOTE | 2020-12-25 07:10 | NUR ---
RN NOTE PATIENT OBSERVED ON BED, AWAKE AND RESPONSIVE, ALERT AND ORIENTED X4 ABLE TO VERBALIZE NEEDS, EVEN AND UNLABORED RESPIRATION, ON IV FLUID FOR HYDRATION PATENT, WILL CONTINUE TO MONITOR PATIENT. Addendum: 12/25/20 at 0836 by NOEL BESS RN SAFETY , MEASURES OBSERVED, BED ALARM ON, BED WHEELS LOCK. CALL LIGHT WITHIN REACH
[2020-12-25 07:16] LABS: CALCIUM, SERUM 7.9 mg/dL (8.5-10.1); CREATININE 0.6 mg/dL (0.6-1.3); POTASSIUM 4.1 mmol/L (3.5-5.1)
[2020-12-25] MEDS: DOCUSATE SODIUM 250 MG CAPSULE PO PRN (08:42)
[2020-12-25] MEDS: ASPIRIN 325 MG TABLET PO SCH (08:47)
[2020-12-25] MEDS: LOSARTAN POTASSIUM 50 MG TABLET PO SCH (08:47)
[2020-12-25] MEDS: HYDROCODONE/APAP 5/325MG TABLET PO PRN ×3 (09:26→21:48)
[2020-12-25] MEDS ORDERED: ASPI-992 PO (11:04)
[2020-12-25] MEDS: METOPROLOL SUCCINATE 50 MG TAB.SR.24H PO SCH (16:44)
--- NOTE | 2020-12-25 18:55 | NUR ---
RN NOTE PATIENT IN BED, AWAKE AND ORIENTED X4,ABLE TO VERBALIZE NEEDS, NO PAIN COMPLAINS AT THIS TIME, AFEBRILE, BREATHING EVEN AND UNLABORED, ON IVF HYDRATION ORDERED, S/P LEFT KNEE ARTHROPLASTY, WOUND DRESSING DONE ORDERED, NO S/S OF INFECTION AND BLEEDING NOTED, CONTINENT ON BOWEL AND BLADDER, SAFETY MEASURES OBSERVED, CALL LIGHT WITHIN REACH, BED WHEELS LOCK, WILL CONTINUE TO MONITOR, WILL ENDORSE TO UPCOMING SHIFT.
[2020-12-25 20:00] VITALS: BP 131/74
--- NOTE | 2020-12-25 20:00 | NUR ---
RN NOTE PATIENT IN BED ALERT AND ORIENTED X4 ABLE , BREATHING EVEN AND UNLABORED NO SOB NO DISTRESS NOTED DENIES PAIN AT THIS TIME., V/S STABLE AFEBRILE. , IVF OF NS AT 80CC/HR INFUSING WELL .ALL NEEDS ATTENDED TOO DUE MEDS GIVEN ORDERED .FOR POSSIBLE DISCHARGE ON SUNDAY, BED WHEELS LOCK, CALL LIGHT WITHIN REACH, SAFETY MEASURES OBSERVED. WILL CONTINUE TO MONITOR PTS.
--- NOTE | 2020-12-25 21:48 | NUR ---
MS RN NOTES PTS C/O OF PAIN 6/10 ON LEFT LEG NORCO 1 TAB GIVEN ORDERED WITH EFFECT WILL CONTINUE TO MONITOR PTS.
[2020-12-26] MEDS: HYDROCODONE/APAP 5/325MG TABLET PO PRN ×2 (05:29→14:57)
--- NOTE | 2020-12-26 07:30 | NUR ---
RN NOTE PATIENT OBSERVED IN BED, ALERT AND ORIENTED X4, ABLE TO VERBALIZE NEEDS, AFEBRILE AT THIS TIME, BREATHING EVEN AND UNLABORED, ON IVF HYDRATION ORDERED, IV SITE PATENT INFUSING WELL, PATIENT ADMITTED S/P LEFT KNEE ARTHROPLASTY, WILL CONTINUE TO MANAGE PAIN VERBALIZE BY PATIENT, WILL CONTINUE TO MONITOR, SAFETY MEASURES OBSERVED, BED WHEELS LOCK, CALL LIGHT WITHIN EACH.
[2020-12-26 08:00] VITALS: BP 109/47
[2020-12-26] MEDS: LOSARTAN POTASSIUM 50 MG TABLET PO SCH (09:00)
[2020-12-26] MEDS: ASPIRIN 325 MG TABLET PO SCH (09:10)
[2020-12-26] MEDS: IV NS 0.9% 1,000 ML IV PRN (09:28)
[2020-12-26] MEDS: DOCUSATE SODIUM 250 MG CAPSULE PO PRN (11:29)
[2020-12-26] MEDS: METOPROLOL SUCCINATE 50 MG TAB.SR.24H PO SCH (17:10)
--- NOTE | 2020-12-26 18:47 | NUR ---
RN NOTE OBSERVED PATIENT AWAKE IN BED, ALERT AND ORIENTED X4, ABLE TO VERBALIZE NEEDS, BREATHING EVEN AND UNLABORED, ON ROOM AIR O2 SAT OF 99%, AFEBRILE AT THIS TIME, S/P LEFT KNEE ARTHROPLASTY, PAIN MANAGEMENT ORDERED, PATIENT ON PT TOLERATED, ON CPM TOLERATED, CONTINENT ON BOWEL AND BLADDER, ASSISTED WITH BED IRVIN OR AMBULATES WITH WALKER TO THE BATHROOM, ON IVF HYDRATION PATENT INFUSING WELL, LEFT KNEE DRESSING DONE ORDERED, NO S/S OF INFECTION, WILL CONTINUE TO MONITOR, PATIENT FOR POSSIBLE DISCHARGE TOMORROW TO [facility], BED WHEELS LOCK CALL LIGHT WITHIN REACH, SAFETY MEASURES OBSERVED,WILL ENDORSE TO NOC SHIFT,.
--- NOTE | 2020-12-26 19:40 | NUR ---
RN NOTE PATIENT ALERT AND ORIENTED X4, ABLE TO MAKE NEEDS KNOWN. ON ROOM AIR, NO SIGNS OF SHORTNESS OF BREATH. RESPIRATIONS EVEN AND UNLABORED. DENIES ANY PAIN AT THIS TIME. S/P LEFT KNEE ARTHROPLASTY, DRESSING DRY AND INTACT. IV ACCESS LEFT WRIST #22 RUNNING NS @ 80CC/HR. BED LOCKED AND IN LOWEST POSITION. SAFETY MEASURES MAINTAINED. CALL LIGHT WITHIN REACH. ALL NEEDS ANTICIPATED.
[2020-12-26 20:00] VITALS: BP 125/68
[2020-12-26] MEDS: SENNOSIDES 8.6 MG TABLET PO PRN (21:01)
--- NOTE | 2020-12-27 02:01 | NUR ---
RN NOTE RECEIVED REPORT FROM MIGUELITO KATZ FOR CONTINUATION OF CARE. PT AT THIS TIME IS RESTING, SLEEPING. NO DISTRESS NOTED. WILL CONTINUE TO MONITOR CLOSELY.
[2020-12-27 04:00] VITALS: BP 116/73
[2020-12-27] MEDS: IV NS 0.9% 1,000 ML IV PRN (05:23)
--- NOTE | 2020-12-27 07:15 | NUR ---
RN NOTE NO CHANGE IN CONDITION. PT IS RESTING THIS TIME. NO DISTRESS NOTED. ALL NEEDS ATTENDED. IVF STILL RUNNING ORDERED. NO S/S OF INFILTRATION NOTED. SAFETY MEASURES IN PLACE. HOB ELEVATED. SIDE RAILS UP X2 BED LOCKED IN LOWEST POSITION WITH BED ALARM ON. CALL LIGHT WITHIN REACH. ENDORSED TO DAY SHIFT RNNOEL FOR CONTINUATION OF CARE.
--- NOTE | 2020-12-27 07:22 | NUR ---
RN NOTE PATIENT OBSERVED IN BED AWAKE, ALERT AND ORIENTED X4, BREATHING EVEN AND UNLABORED, ABLE TO VERBALIZE NEEDS, ON IVF HYDRATION INFUSING WELL, PLAN FOR DISCHARGE TO [facility] TODAY, SAFETY MEASURES OBSERVED, BED ALARM ON, BED WHEELS LOCK, CALL LIGHT WITHIN REACH,WILL CONTINUE TO MONITOR.
[2020-12-27 08:00] VITALS: BP 138/66
[2020-12-27] MEDS: HYDROCODONE/APAP 5/325MG TABLET PO PRN ×2 (08:31→18:45)
[2020-12-27] MEDS: ASPIRIN 325 MG TABLET PO SCH (09:54)
[2020-12-27] MEDS: LOSARTAN POTASSIUM 50 MG TABLET PO SCH (09:54)
[2020-12-27] MEDS: METOPROLOL SUCCINATE 50 MG TAB.SR.24H PO SCH (16:33)
--- NOTE | 2020-12-27 18:04 | NUR ---
RN NOTE PATIENT IN BED, AWAKE AND ORIENTED X4,ABLE TO VERBALIZE NEEDS, NO PAIN COMPLAINS AT THIS TIME, AFEBRILE, BREATHING EVEN AND UNLABORED, ON IVF HYDRATION ORDERED, S/P LEFT KNEE ARTHROPLASTY, WOUND DRESSING DONE ORDERED, PATIENT IS FOR DISCHARGE TO [facility], NO S/S OF INFECTION AND BLEEDING NOTED, CONTINENT ON BOWEL AND BLADDER, SAFETY MEASURES OBSERVED, CALL LIGHT WITHIN REACH, BED WHEELS LOCK, WILL CONTINUE TO MONITOR, WILL ENDORSE TO UPCOMING SHIFT.
[2020-12-27 20:00] VITALS: BP 115/68
--- NOTE | 2020-12-27 20:08 | NUR ---
PATIENT DISCHARGED VIA GURNEY, ACCOMPANIED BY 2 AUTO PAINTER HELPER IN STABLE CONDITION, VITAL SIGNS STABLE. ALL DISCHARGE TEACHING/DOCUMENTS GIVEN AND VERBALIZED UNDERSTANDING. ALL BELONGINGS TRANSFERRED WITH PATIENT.
== END 2020-12-27 20:10 | DRG 470 ==
LOC: DS 05:57 → MED 10:08 → MEDSG1 20:24
PROVIDERS: ADMIT Legal Medicine; ATTEND Hospitalist
PROC: 0SRD0J9 Replacement of Left Knee Joint with Synthetic Substitute, Cemented, Open Approach (ICD-10-PCS; principal; 2020-12-22)
DX: M17.12 Unilateral primary osteoarthritis, left knee (principal); E87.1 Hypo-osmolality and hyponatremia; I10 Essential (primary) hypertension; E86.1 Hypovolemia; Z86.2 Personal history of diseases of the blood and blood-forming organs and certain disorders involving the immune mechanism; Z87.39 Personal history of other diseases of the musculoskeletal system and connective tissue
CPT/HCPCS: 36415; 80048-TC; 85025-TC; 85027-TC; 86850-TC; 87081-TC; 88305-TC; 88311-TC; 97110-TC; 97116-TC; 97530-TC; 97760-TC; A4217; C1713; C1776; G0378; J0690; J1100; J1170; J1885; J2405; J2704; J3490; J7030; J7050; J7060; J7120; L1830

== ENCOUNTER 2021-02-17 09:42 | Outpatient (CLI) | payer BC ==
[~2021-02-17 09:42] MED LIST changes: +ASPI-992 PO
[2021-02-17 11:44] LABS: BASOPHILS % (AUTO) 1.1 % (0.0-2.0); EOSINOPHILS % (AUTO) 1.1 % (0.0-6.0); HEMATOCRIT 36 % (33-45); HEMOGLOBIN 12.3 g/dL (11.5-14.8); LYMPHOCYTES # (AUTO) 0.7 K/uL (0.8-4.8); LYMPHOCYTES % (AUTO) 19.5 % (20.0-44.0); MEAN CORPUSCULAR HGB CONC 34 g/dl (31.0-36.0); MEAN CORPUSCULAR VOLUME 96 fL (82-100); MONOCYTES # (AUTO) 0.3 K/uL (0.1-1.30); MONOCYTES % (AUTO) 8.1 % (2.0-12.0); NEUTROPHILS # (AUTO) 2.6 K/uL (1.8-8.9); NEUTROPHILS % (AUTO) 70.2 % (43.0-81.0); PLATELET COUNT (AUTO) 362 K/uL (150-450); WHITE BLOOD COUNT (AUTO) 3.7 K/uL (4.3-11.0)
[2021-02-17 12:21] LABS: ALBUMIN 3.2 g/dL (3.4-5.0); BILIRUBIN,TOTAL 0.5 mg/dL (0.2-1.0); CALCIUM, SERUM 8.6 mg/dL (8.5-10.1); CREATININE 0.9 mg/dL (0.6-1.3); TOTAL PROTEIN, SERUM 7.9 g/dL (6.4-8.2)
[2021-02-18 13:07] LABS: *IFE A/G RATIO 0.9 (0.7-1.7); *IFE ALBUMIN 3.5 g/dL (2.9-4.4); *IFE ALPHA-2-GLOBULIN 0.8 g/dL (0.4-1.0); *IFE BETA GLOBULIN 1.3 g/dL (0.7-1.3); *IFE GAMMA GLOBULIN 1.5 g/dL (0.4-1.8); *IFE M-SPIKE Not Observed g/dL (Not Observed); *IFEALPHA-1-GLOBULIN 0.2 g/dL (0.0-0.4)
== END 2021-02-17 23:59 | disposition home or self-care (01) ==
LOC: LAB 09:42
PROVIDERS: ATTEND Internal Medicine Hematology & Oncology
DX: D72.819 Decreased white blood cell count, unspecified (principal); E53.8 Deficiency of other specified B group vitamins; D47.2 Monoclonal gammopathy; M19.90 Unspecified osteoarthritis, unspecified site
CPT/HCPCS: 36415; 80053-TC; 82232; 82607-TC; 82728-TC; 83540-TC; 85025-TC

== ENCOUNTER 2021-05-18 10:56 | Outpatient (CLI) | payer BC ==
[2021-05-18 12:15] LABS: EOSINOPHILS % (AUTO) 2.5 % (0.0-6.0); HEMATOCRIT 37 % (33-45); HEMOGLOBIN 12.2 g/dL (11.5-14.8); LYMPHOCYTES # (AUTO) 0.9 K/uL (0.8-4.8); LYMPHOCYTES % (AUTO) 24.5 % (20.0-44.0); MEAN CORPUSCULAR HGB CONC 33 g/dl (31.0-36.0); MEAN CORPUSCULAR VOLUME 95 fL (82-100); MONOCYTES # (AUTO) 0.4 K/uL (0.1-1.30); MONOCYTES % (AUTO) 11.5 % (2.0-12.0); NEUTROPHILS # (AUTO) 2.2 K/uL (1.8-8.9); NEUTROPHILS % (AUTO) 60.5 % (43.0-81.0); PLATELET COUNT (AUTO) 271 K/uL (150-450); RED BLOOD CELL COUNT(AUTO) 3.86 MIL/uL (4.0-5.2); WHITE BLOOD COUNT (AUTO) 3.6 K/uL (4.3-11.0)
[2021-05-18 13:09] LABS: ALBUMIN 3.4 g/dL (3.4-5.0); BILIRUBIN,TOTAL 0.6 mg/dL (0.2-1.0); CALCIUM, SERUM 8.8 mg/dL (8.5-10.1); POTASSIUM 4.2 mmol/L (3.5-5.1); TOTAL PROTEIN, SERUM 7.9 g/dL (6.4-8.2)
[2021-05-21 02:06] LABS: *IFE A/G RATIO 0.8 (0.7-1.7); *IFE ALBUMIN 3.1 g/dL (2.9-4.4); *IFE ALPHA-2-GLOBULIN 0.8 g/dL (0.4-1.0); *IFE BETA GLOBULIN 1.4 g/dL (0.7-1.3); *IFE GAMMA GLOBULIN 1.5 g/dL (0.4-1.8); *IFE M-SPIKE Not Observed g/dL (Not Observed); *IFEALPHA-1-GLOBULIN 0.3 g/dL (0.0-0.4)
== END 2021-05-18 23:59 | disposition home or self-care (01) ==
LOC: LAB 10:56
PROVIDERS: ATTEND Internal Medicine Hematology & Oncology
DX: D72.819 Decreased white blood cell count, unspecified (principal); E53.8 Deficiency of other specified B group vitamins; D47.2 Monoclonal gammopathy; M19.90 Unspecified osteoarthritis, unspecified site
CPT/HCPCS: 36415; 80053-TC; 82232; 82607-TC; 82728-TC; 83540-TC; 85025-TC

== ENCOUNTER 2021-09-19 14:34 | Outpatient (CLI) | payer BC ==
[2021-09-19 16:44] LABS: BASOPHILS % (AUTO) 1.1 % (0.0-2.0); EOSINOPHILS % (AUTO) 1.8 % (0.0-6.0); HEMATOCRIT 40 % (33-45); LYMPHOCYTES # (AUTO) 0.8 K/uL (0.8-4.8); LYMPHOCYTES % (AUTO) 18.3 % (20.0-44.0); MEAN CORPUSCULAR HGB CONC 33 g/dl (31.0-36.0); MEAN CORPUSCULAR VOLUME 95 fL (82-100); MONOCYTES # (AUTO) 0.4 K/uL (0.1-1.30); MONOCYTES % (AUTO) 9.1 % (2.0-12.0); NEUTROPHILS # (AUTO) 2.9 K/uL (1.8-8.9); NEUTROPHILS % (AUTO) 69.7 % (43.0-81.0); PLATELET COUNT (AUTO) 284 K/uL (150-450); RED BLOOD CELL COUNT(AUTO) 4.17 MIL/uL (4.0-5.2); WHITE BLOOD COUNT (AUTO) 4.2 K/uL (4.3-11.0)
[2021-09-19 16:46] LABS: BILIRUBIN,URINE NEGATIVE (NEGATIVE); COLOR,URINE YELLOW (YELLOW); LEUKOCYTE ESTERASE ,URINE NEGATIVE (NEGATIVE); NITRITE, URINE NEGATIVE (NEGATIVE); PROTEIN,URINE NEGATIVE (NEGATIVE); UGLUCOSE NEGATIVE (NEGATIVE); UROBILINOGEN,URINE 0.2 EU/dL (0.2)
[2021-09-19 16:59] LABS: ALBUMIN 3.5 g/dL (3.4-5.0); BILIRUBIN,TOTAL 0.3 mg/dL (0.2-1.0); CALCIUM, SERUM 8.9 mg/dL (8.5-10.1); CREATININE 0.9 mg/dL (0.6-1.3); POTASSIUM 4.3 mmol/L (3.5-5.1)
[2021-09-19 17:10] LABS: TOTAL PROTEIN, SERUM 8.1 g/dL (6.4-8.2)
[2021-09-19 17:31] LABS: WBC,URINE 0-2 /HPF (0-3)
[2021-09-19 17:32] LABS: BACTERIA,URINE RARE /HPF (None Seen)
== END 2021-09-19 23:59 | disposition home or self-care (01) ==
LOC: LAB 14:34
PROVIDERS: ATTEND Orthopaedic Surgery
DX: Z01.818 Encounter for other preprocedural examination (principal); Z20.822 Contact with and (suspected) exposure to COVID-19; R06.02 Shortness of breath
CPT/HCPCS: 36415; 71046; 80053; 81001; 85025; 85730; C9803; U0003

== ENCOUNTER 2021-09-26 07:36 | Day surgery (SDC) | payer BC ==
[~2021-09-26] VITALS: Ht 160 cm; Wt 68.0 kg
--- NOTE | 2021-09-26 08:00 | NUR ---
MS RN ADMITTING NOTES PATYIENT ADMITTED
--- NOTE | 2021-09-26 08:00 | NUR ---
MS RN ADMITTING NOTES PATIENT ADMITTED FOR DAY SURGERY. VS WNL. PATIENT A/O X4, ABLE TO MAKE NEEDS KNOWN.
--- NOTE | 2021-09-26 09:14 | NUR ---
MS RN NOTES PATIENT TAKEN TO OR
[2021-09-26] MEDS ORDERED: ANESTHESIA TRAY IN PYXIS 1 EA TRAY MC ONE (09:28)
[2021-09-26] MEDS ORDERED: POLYMYXIN B SULFATE 500,000 UNITS ONE (09:29)
[2021-09-26] MEDS ORDERED: BUPIVACAINE 0.5 % PF 150 MG/30 ML VIAL ONE (09:29)
[2021-09-26] MEDS ORDERED: HYDROMORPHONE INJ 2 MG/ML DISP.SYRIN ONE (09:30)
[2021-09-26] MEDS ORDERED: HYDROMORPHONE 1 MG/1 ML DISP.SYRIN ONE ×2 (11:39→11:56)
[2021-09-26] MEDS ORDERED: HYDROCODONE/APAP 10/325MG TABLET PO ONE (12:30)
--- NOTE | 2021-09-26 12:38 | NUR ---
MS RN NOTES PATIENT BACK FROM OR AND MEDICALLY STABLE PER OR NURSE, 1230 NORCO [phone] WAS ADMINISTERED BY HER.
--- NOTE | 2021-09-26 17:59 | NUR ---
MS DRAW OFF WORKER NOTES PATIENT DISCHARGED HOME ALL PHYSICIAN DISCHARGE INSTRUCTIONS PROVIDED TO PATIENT. PATIENT VERBALIZED UNDERSTANDING. DISCHARGE PAPERWORK SIGNED. IV LINE REMOVED WITH WRISTBAND. PATIENT LEFT THE UNIT VIA WHEELCHAIR ACCOMPANIED BY RESTORATIVE CARE TECHNICIAN AND LEFT IN A PRIVATE CAR.
== END 2021-09-26 18:00 | disposition home or self-care (01) ==
LOC: DS 07:36 → MEDSG1 07:51 → UNDOADMIN 07:51 → UNDODISIN 18:00 → DS 18:00
PROVIDERS: ATTEND Orthopaedic Surgery
DX: S59.292A Other physeal fracture of lower end of radius, left arm, initial encounter for closed fracture (principal); W18.30XA Fall on same level, unspecified, initial encounter; I10 Essential (primary) hypertension; Z98.890 Other specified postprocedural states; Z79.899 Other long term (current) drug therapy
CPT/HCPCS: 25607; 73100; A4217; A4565; A6253; A6402; C1713 ×5; J0690; J1100; J1170 ×3; J1885; J2405; J2704; J3490 ×2; J7030 ×2; G0378

== ENCOUNTER 2022-01-11 10:10 | Outpatient (CLI) | payer BC ==
[2022-01-11 12:24] LABS: BASOPHILS % (AUTO) 0.8 % (0.0-2.0); EOSINOPHILS % (AUTO) 2.9 % (0.0-6.0); HEMATOCRIT 37 % (33-45); HEMOGLOBIN 12.2 g/dL (11.5-14.8); LYMPHOCYTES # (AUTO) 0.9 K/uL (0.8-4.8); LYMPHOCYTES % (AUTO) 26.5 % (20.0-44.0); MEAN CORPUSCULAR HGB CONC 33 g/dl (31.0-36.0); MEAN CORPUSCULAR VOLUME 94 fL (82-100); MONOCYTES # (AUTO) 0.6 K/uL (0.1-1.30); MONOCYTES % (AUTO) 17.7 % (2.0-12.0); NEUTROPHILS # (AUTO) 1.8 K/uL (1.8-8.9); NEUTROPHILS % (AUTO) 52.1 % (43.0-81.0); PLATELET COUNT (AUTO) 229 K/uL (150-450); RED BLOOD CELL COUNT(AUTO) 3.94 MIL/uL (4.0-5.2); WHITE BLOOD COUNT (AUTO) 3.5 K/uL (4.3-11.0)
[2022-01-11 12:25] LABS: ALBUMIN 3.3 g/dL (3.4-5.0); BILIRUBIN,TOTAL 0.5 mg/dL (0.2-1.0); CREATININE 0.9 mg/dL (0.6-1.3); POTASSIUM 4.2 mmol/L (3.5-5.1); TOTAL PROTEIN, SERUM 7.9 g/dL (6.4-8.2)
[2022-01-11 12:55] LABS: BILIRUBIN,URINE NEGATIVE (NEGATIVE); COLOR,URINE YELLOW (YELLOW); LEUKOCYTE ESTERASE ,URINE TRACE (NEGATIVE); NITRITE, URINE NEGATIVE (NEGATIVE); PH,URINE 6.5 (5.0-8.0); PROTEIN,URINE NEGATIVE (NEGATIVE); UGLUCOSE NEGATIVE (NEGATIVE); UROBILINOGEN,URINE 0.2 EU/dL (0.2)
[2022-01-11 13:08] LABS: BACTERIA,URINE Few /HPF (None Seen); SQUAMOUS EPITHELIAL CELL,UR Few /HPF (None Seen); WBC,URINE 0-2 /HPF (0-3)
[2022-01-11 15:56] LABS: BAND % (MANUAL) 9 % (0.0-5.0); EOSINOPHILS % (MANUAL) 1 % (0-4); LYMPHOCYTES % (MANUAL) 21 % (16-48); MONOCYTES % (MANUAL) 11 % (0-11.0); NEUTROPHILS % (MANUAL) 58 (42-76)
== END 2022-01-11 23:59 | disposition home or self-care (01) ==
LOC: LAB 10:10
PROVIDERS: ATTEND Orthopaedic Surgery
DX: Z01.818 Encounter for other preprocedural examination (principal); M17.11 Unilateral primary osteoarthritis, right knee; J98.11 Atelectasis
CPT/HCPCS: 36415; 71046; 80053-TC; 81001; 85025-TC; 85730-TC

== ENCOUNTER 2022-01-20 05:52 | Outpatient (CLI) | payer BC | END 2022-01-20 23:59 | disposition home or self-care (01) | LOC: LAB 05:52 | PROVIDERS: ATTEND Orthopaedic Surgery | DX: Z01.812 Encounter for preprocedural laboratory examination (principal); Z20.822 Contact with and (suspected) exposure to COVID-19 | CPT/HCPCS: U0003; C9803 ==

== ENCOUNTER 2022-01-26 05:40 | Inpatient (IN) | payer BC ==
[~2022-01-26] VITALS: Ht 162.6 cm; Wt 71.7 kg
[~2022-01-26 05:40] MED LIST changes: +ANESTHESIA TRAY IN PYXIS 1 EA TRAY MC ONE
[2022-01-26] MEDS ORDERED: BUPIVACAINE 0.5 % PF 150 MG/30 ML VIAL ONE ×2 (07:01→07:25)
[2022-01-26] MEDS ORDERED: POLYMYXIN B SULFATE 500,000 UNITS ONE (07:01)
[2022-01-26] MEDS ORDERED: BUPIVACAINE 0.25% 75 MG/30 ML VIAL ONE (07:02)
[2022-01-26] MEDS ORDERED: ROCURONIUM BROMIDE 50 MG/5 ML ONE ×2 (07:19→08:59)
[2022-01-26] MEDS ORDERED: FENTANYL PF 250MCG/5ML AMPUL ONE (07:19)
[2022-01-26] MEDS ORDERED: TRANEXAMIC ACID 3,000 MG in SODIUM CHLORIDE IRRIG SOLUTION 70 ML IR ONE (07:30)
[2022-01-26] MEDS ORDERED: OMEP20TA5 PO (07:50)
--- NOTE | 2022-01-26 07:51 | NUR ---
MIGUELITO NOTES PT ARRIVED @0598 AMBULATING. CONSENT SIGNED. CHECKLIST FILLED OUT. PT NPO SINCE 2 PT LEFT UNIT @0636 FOR SURGERY. Addendum: 01/26/22 at 0752 by DALTON MCNEIL RN PT NPO SINCE [id number] ON 01/25
[2022-01-26] MEDS ORDERED: FENTANYL PF 100MCG/2ML AMPUL ONE (10:31)
[2022-01-26] MEDS ORDERED: ONDANSETRON HCL/PF 4 MG/2 ML VIAL IVP PRN (11:00)
[2022-01-26] MEDS ORDERED: MORPHINE SULFATE INJ 4 MG/ML DISP.SYRIN IV PRN (11:00)
[2022-01-26] MEDS ORDERED: BISACODYL SUPP (10 MG) 10 MG/SUPP.RECT SUPP.RECT RC PRN (11:00)
[2022-01-26] MEDS ORDERED: HYDROCODONE/APAP 5/325MG TABLET PO PRN ×2 (11:00)
[2022-01-26] MEDS ORDERED: SENNOSIDES 8.6 MG TABLET PO PRN (11:00)
[2022-01-26] MEDS ORDERED: ZOLPIDEM TARTRATE 10 MG TABLET PO PRN (11:00)
[2022-01-26] MEDS ORDERED: ACETAMINOPHEN 325 MG TABLET PO PRN (11:00)
--- NOTE | 2022-01-26 11:30 | NUR ---
RN NOTE PT BACK FROM OR SURGERY IN STABLE CONDITION. S/P RIGHT TOTAL KNEE ARTHROPLASTY, DRESSING IN PLACE WITH YULIET WRAP. NO BLEEDING AT THE SITE. DENIES PAIN OR DISCOMFORT AT THIS TIME. KEPT RIGHT KNEE ELEVATED WITH ICE PACK IN PLACE. V/S BP 139/94, TEMP 98.0, P 61, R 18, SPO2 100% AT O2 AT 2L/MIN VIA NC. SAFETY MEASURES IN PLACE: BED IN LOWEST AND LOCKED POSITION, SIDE RAILS UP X2, AND CALL LIGHT WITHIN REACH. WILL CONTINUE TO MONITOR PT.
--- NOTE | 2022-01-26 12:00 | NUR ---
RN NOTE REASSESSED PT'S RIGHT KNEE ON S/P RIGHT TOTAL KNEE ARTHROPLASTY, DRESSING IN PLACE WITH YULIET WRAP. NO BLEEDING AT THE SITE. DENIES PAIN OR DISCOMFORT AT THIS TIME. KEPT RIGHT KNEE ELEVATED WITH ICE PACK IN PLACE. V/S BP 136/90, TEMP 97.8, P 65, R 18, SPO2 98% IN ROOM AIR. SAFETY MEASURES IN PLACE: BED IN LOWEST AND LOCKED POSITION, SIDE RAILS UP X2, AND CALL LIGHT WITHIN REACH. WILL CONTINUE TO MONITOR PT.
--- NOTE | 2022-01-26 13:00 | NUR ---
RN NOTE REASSESSED PT'S RIGHT KNEE ON S/P RIGHT TOTAL KNEE ARTHROPLASTY, DRESSING IN PLACE WITH YULIET WRAP. NO BLEEDING AT THE SITE. DENIES PAIN OR DISCOMFORT AT THIS TIME. KEPT RIGHT KNEE ELEVATED WITH ICE PACK IN PLACE. V/S BP 126/68, TEMP 98.0, P 96, R 18, SPO2 97% IN ROOM AIR. SAFETY MEASURES IN PLACE: BED IN LOWEST AND LOCKED POSITION, SIDE RAILS UP X2, AND CALL LIGHT WITHIN REACH. WILL CONTINUE TO MONITOR PT.
[2022-01-26] MEDS ORDERED: HYDROCODONE/APAP 5/325MG TABLET PO ONE (14:15)
[2022-01-26] MEDS ORDERED: ONDANSETRON HCL/PF 4 MG/2 ML VIAL IV PRN (14:30)
[2022-01-26] MEDS ORDERED: HYDROCODONE/APAP 10/325MG TABLET PO PRN (14:30)
[2022-01-26] MEDS ORDERED: diphenhydrAMINE HCL 25 MG CAPSULE PO PRN (14:30)
[2022-01-26] MEDS ORDERED: MENTHOL/CETYLPYRD (CEPACOL) 1 LOZ LOZENGE PO PRN (14:30)
[2022-01-26] MEDS ORDERED: MAG HYDROX/AL HYDROX/SIMETH 30 ML UDC PO PRN (14:30)
[2022-01-26] MEDS ORDERED: HYDROMORPHONE 1 MG/1 ML DISP.SYRIN IM/IV/SC PRN (14:30)
[2022-01-26] MEDS ORDERED: MAGNESIUM HYDROXIDE 30 ML UDC PO PRN (14:30)
[2022-01-26] MEDS: ANCEF 1 GM/50 ML D5W IV SCH ×4 (15:16→22:48)
[2022-01-26] MEDS: DOCUSATE SODIUM 100 MG CAPSULE PO SCH (17:18)
--- NOTE | 2022-01-26 18:48 | NUR ---
MS RN CLOSING NOTE PT IN BED ASLEEP, EASILY AROUSED. A/O X4, ABLE TO MAKE NEEDS KNOWN. ON RA, TOLERATING WELL WITH SPO2 AT 98%. NO SOB NOTED AT THIS TIME. NOT IN ANY SIGN OF RESPIRATORY DISTRESS. IV SITE IN L HAND G #20 SALINE LOCK, INTACT AND PATENT. ON S/P RIGHT TOTAL KNEE ARTHROPLASTY, KEPT ELEVATED WITH ICE PACK IN PLACE. DENIES PAIN OR DISCOMFORT AT THIS TIME. ALL NEEDS ATTENDED. KEPT CLEAN AND COMFORTABLE. SAFETY MEASURES IN PLACE: BED IN LOWEST AND LOCKED POSITION, SIDE RAILS UP X2, CALL LIGHT WITHIN REACH. WILL ENDORSE TO WATER ENGINEER NURSE FOR LOLA.
--- NOTE | 2022-01-26 19:35 | NUR ---
MS RN OPENING NOTE RECEIVED PATIENT RESTING IN BED; AWAKE, ALERT AND ORIENTED X4. BREATHING EVEN AND NONLABORED. ON ROOM AIR; TOLERATING WELL. NOT IN ANY FORM OF RESPIRATORY DISTRESS. DENIES ANY PAIN OR DISCOMFORT OF THIS TIME. WITH IV ACCESS ON LEFT HAND G#20; PATENT, INTACT AND SALINE LOCKED. ABLE TO MAKE NEEDS KNOWN. SAFETY MEASURES IMPLEMENTED: CALL LIGHT AND TABLE WITHIN REACH, SIDE RAILS UP X2, BED IN LOWEST LOCKED POSITION. WILL CONTINUE TO MONITOR
[2022-01-26 20:00] VITALS: BP 120/69
[2022-01-26] MEDS ORDERED: FAMOTIDINE (20 MG) 20 MG TABLET PO SCH (21:00)
--- NOTE | 2022-01-26 21:35 | NUR ---
RN NOTE PATIENT C/O OF RIGHT KNEE PAIN 01/01; PRN HYDROCODONE 10/325MG GIVEN PO ORDERED. WILL CONTINUE TO MONITOR AND REASSESS PT.
[2022-01-26] MEDS ORDERED: PANTOPRAZOLE 40 MG TABLET.DR PO SCH (22:00)
[2022-01-27] MEDS: HYDROCODONE/APAP 5/325MG TABLET PO PRN ×3 (07:06→16:52)
--- NOTE | 2022-01-27 07:06 | NUR ---
RN NOTE PATIENT C/O OF RIGHT KNEE PAIN 09/01; PRN HYDROCODONE 5/325MG GIVEN PO ORDERED. WILL CONTINUE TO MONITOR AND REASSESS PT.
--- NOTE | 2022-01-27 07:10 | NUR ---
MS RN CLOSING NOTE PATIENT IN BED; RESTING, AWAKE, A/O X4. STABLE ON ROOM AIR. BREATHING EVENLY AND UNLABORED. NO SOB OR S/S OF DISTRESS NOTED. IV ACCESS ON LEFT HAND G#20; SALINE LOCKED, INTACT AND PATENT. ALL DUE MEDS GIVEN ORDERED. ALL NEEDS ATTENDED TO. SAFETY MEASURES MAINTAINED: BED IN LOW, LOCKED POSITION, SIDE RAILS UP X2, CALL LIGHT AND TABLE WITHIN REACH. WILL ENDORSE TO MORNING SHIFT FOR LOLA.
--- NOTE | 2022-01-27 07:30 | NUR ---
ms rn received on bed, awake,alert,oriented x4,not in any form of distress, respirations even and unlabored,no sob noted,s/p right knee surgery,denies pain at this time,all needs attended.
[2022-01-27 08:20] VITALS: BP 94/46
[2022-01-27 08:40] VITALS: BP 94/46
--- NOTE | 2022-01-27 08:50 | NUR ---
ms paula breakfast served,due meds given,tolerated well.
[2022-01-27] MEDS ORDERED: ASPIRIN 325 MG TABLET PO SCH (09:00)
[2022-01-27] MEDS: DOCUSATE SODIUM 100 MG CAPSULE PO SCH (09:09)
--- NOTE | 2022-01-27 11:00 | NUR ---
ms rn patient up w/ pt, tolerated well using walker.
--- NOTE | 2022-01-27 16:00 | NUR ---
RN D/C Report. PT AOx4, vss, states no discomfort. able to express needs and concerns. Provide report to nurse at [facility], states pt to be received into room #325. Provided report to Transport team. Pt agrees with d/c plan. All precautions taken throughout shift, no incidents.
[2022-01-27 16:16] VITALS: BP 141/75
[2022-01-27 17:25] LABS: BASOPHILS % (AUTO) 0.2 % (0.0-2.0); EOSINOPHILS % (AUTO) 0.1 % (0.0-6.0); HEMATOCRIT 33 % (33-45); HEMOGLOBIN 10.9 g/dL (11.5-14.8); LYMPHOCYTES % (AUTO) 10.3 % (20.0-44.0); MEAN CORPUSCULAR HGB CONC 33 g/dl (31.0-36.0); MEAN CORPUSCULAR VOLUME 95 fL (82-100); MONOCYTES # (AUTO) 0.9 K/uL (0.1-1.30); MONOCYTES % (AUTO) 8.9 % (2.0-12.0); NEUTROPHILS # (AUTO) 8.2 K/uL (1.8-8.9); NEUTROPHILS % (AUTO) 80.5 % (43.0-81.0); PLATELET COUNT (AUTO) 284 K/uL (150-450); RED BLOOD CELL COUNT(AUTO) 3.49 MIL/uL (4.0-5.2); WHITE BLOOD COUNT (AUTO) 10.2 K/uL (4.3-11.0)
== END 2022-01-27 17:58 | DRG 470 ==
LOC: DS 05:40 → MED 05:46
PROVIDERS: ADMIT Legal Medicine; ATTEND Legal Medicine
PROC: 0SRC0J9 Replacement of Right Knee Joint with Synthetic Substitute, Cemented, Open Approach (ICD-10-PCS; principal; 2022-01-26)
DX: M17.11 Unilateral primary osteoarthritis, right knee (principal); I10 Essential (primary) hypertension; Z20.822 Contact with and (suspected) exposure to COVID-19; K21.9 Gastro-esophageal reflux disease without esophagitis; Z96.652 Presence of left artificial knee joint; Z79.891 Long term (current) use of opiate analgesic; M19.90 Unspecified osteoarthritis, unspecified site; Z98.890 Other specified postprocedural states; Z87.39 Personal history of other diseases of the musculoskeletal system and connective tissue
CPT/HCPCS: 36415; 73564-TC; 82962-TC; 85025-TC; 87081-TC; 97116-TC; 97530-TC; 97760-TC; A4217; C1713; C1776; G0378; J0690; J1100; J1885; J2405; J2704; J3010; J3490; J7030; J7040; J7060